=== PATIENT | female | born 1970 | race Caucasian/White ===

== ENCOUNTER 2023-01-31 07:14 | Emergency (ER) | payer OTHER ==
[~2023-01-31] VITALS: Ht 162.6 cm; Wt 54.4 kg
[2023-01-31] MEDS ORDERED: LACTATED RINGERS 1000ML 1,000 ML IV ONE (07:30)
[2023-01-31] MEDS ORDERED: MAG/ALUM/SIMETH 30 ML UDCUP PO ONE (07:30)
[2023-01-31] MEDS ORDERED: LIDOCAINE HCL 2% VISCOUS 15 ML UDCUP PO ONE (07:30)
[2023-01-31] MEDS ORDERED: ONDANSETRON 4MG INJ IVP ONE (07:30)
[2023-01-31 07:52] LABS: BASOPHILS # (AUTO) 0.04 K/uL (0.00-0.20); BASOPHILS % (AUTO) 0.4 % (0.0-5.0); EOSINOPHILS # (AUTO) 0.32 K/uL (0.00-0.70); HEMATOCRIT 45.1 % (36-48); IMMATURE GRANULOCYTE ABSOLUTE 0.06 K/uL (0-1); LYMPHOCYTES # (AUTO) 1.8 K/uL (1.0-4.8); LYMPHOCYTES % (AUTO) 16.7 % (21.0-51.0); MEAN CORPUSCULAR HEMOGLOBIN 30.6 pg (27.0-33.0); MEAN CORPUSCULAR HGB CONC 31.9 g/dL (32.0-36.0); MEAN CORPUSCULAR VOLUME 95.8 fL (79-99); MONOCYTES # (AUTO) 0.6 K/uL (0.1-1.0); MONOCYTES % (AUTO) 5.4 % (3.0-13.0); NEUTROPHILS # (AUTO) 7.9 K/uL (1.8-7.7); NEUTROPHILS % (AUTO) 73.9 % (40.0-77.0); PLATELET COUNT (AUTO) 331 K/uL (130-400); RED BLOOD CELL COUNT(AUTO) 4.71 MIL/uL (4.00-5.50); RED CELL DISTRIBUTION WIDTH 12.4 % (11.0-15.5); WHITE BLOOD COUNT (AUTO) 10.7 K/uL (4.8-10.8)
[2023-01-31 08:03] VITALS: BP 106/66; PULSE 89; RESP 17; O2SAT 100
[2023-01-31 08:10] LABS: ALBUMIN 4.1 g/dL (3.5-5.0); BILIRUBIN,TOTAL 0.5 mg/dL (0.2-1.0); POTASSIUM 3.9 mmol/L (3.5-5.1); TOTAL PROTEIN, SERUM 8.6 g/dL (6.0-8.3)
[2023-01-31 08:25] LABS: APPEARANCE,URINE CLEAR (CLEAR); BILIRUBIN,URINE NEGATIVE (NEGATIVE); COLOR,URINE YELLOW (YELLOW); GLUCOSE, URINE (UA) NEGATIVE (NEGATIVE); KETONES,URINE NEGATIVE (NEGATIVE); LEUKOCYTE ESTERASE ,URINE 25 Leu/uL (NEGATIVE); NITRATE,URINE NEGATIVE (NEGATIVE); OCCULT BLOOD,URINE NEGATIVE (NEGATIVE); PH,URINE 5.5 (5.0-8.0); PROTEIN,URINE 30 mg/dL (NEGATIVE); UROBILINOGEN,URINE 0.2 mg/dL (0.2-1.0)
[2023-01-31 08:28] LABS: ADD UA MICROSCOPIC YES
[2023-01-31 08:37] LABS: BACTERIA,URINE FEW /HPF (None Seen); MUCUS,URINE MANY LPF (None Seen); RBC,URINE 0-1 /HPF (0-1); SQUAMOUS EPITHELIAL CELL,UR RARE /HPF (0-2); WBC,URINE 0-1 /HPF (0-1)
[2023-01-31] MEDS ORDERED: PANT40TA55 PO (10:02)
== END 2023-01-31 10:20 | disposition home or self-care (01) ==
LOC: EDH 07:14
DX: N39.0 Urinary tract infection, site not specified (principal); A08.4 Viral intestinal infection, unspecified; R56.9 Unspecified convulsions; E03.9 Hypothyroidism, unspecified
CPT/HCPCS: 99284; 96374; 96361; 82550; 84484; 80053; 83690; 85025; 81001; 36415; 93005; J7120; J2405

== ENCOUNTER 2025-01-27 11:34 | Inpatient (IN) | payer SELFPAY ==
[~2025-01-27] VITALS: Ht 160 cm; Wt 69.9 kg
[~2025-01-27 11:34] MED LIST: PANT40TA55 PO
--- NOTE | 2025-01-27 11:49 | ERN ---
General Chief Complaint: Insect Bite Stated Complaint: FEVER Time Seen by MD: 11:35 Source: patient History of Present Illness Initial Comments PATIENT IS A 54-YEAR-OLD FEMALE COMING IN COMPLAINING OF THE RIGHT UPPER EXTREMITY INSECT BITE. SHE BELIEVES THAT INSECT BITE IT IS CAUSING HER TO HAVE NAUSEOUSNESS AND DIARRHEA. PER PATIENT THESE SYMPTOMS BEGAN TWO DAYS AGO IN HIS BEEN PROGRESSIVELY GETTING WORSE. Allergies: Coded Allergies: No Known Drug Allergies (Unverified Allergy, Unknown, 01/31/23) Home Meds Active Scripts Pantoprazole Sodium (Protonix) 40 Mg Ectab, 40 MG PO DAILY for 30 Days, #30 TAB.EC Prov:AKUA HUTTON MD 01/31/23 Past Medical History Past Medical History: No Pertinent History Medical History Other: THYROID Past Surgical History: Other Surgical History Other: TUBAL LIGATION ROS Dictation CONSTITUTIONAL: CHILLS, FEVER, NO WEAKNESS, NO DIAPHORESIS, NO MALAISE. HEAD/FACE: NO SIGNS OF TRAUMA. EENT: NO EYE PAIN, NO BLURRED VISION, NO TEARING, NO DOUBLE VISION, NO EAR PAIN, NO EAR DISCHARGE, NO NOSE PAIN, NO NASAL CONGESTION, NO THROAT PAIN, NO THROAT SWELLING, NO MOUTH PAIN. RESPIRATORY: NO COUGH, NO ORTHOPNEA, NO SOB, NO STRIDOR, NO WHEEZING. CARDIOVASCULAR: NO CHEST PAIN, NO EDEMA, NO PALPITATIONS, NO SYNCOPE. GASTROINTESTINAL/ABDOMINAL: NO ABDOMINAL PAIN, NO CONSTIPATION, NO DIARRHEA, NO NAUSEA, NO VOMITING. GENITOURINARY: NO ABNORMAL DISCHARGE, NO DYSURIA, NO FREQUENT URINATION, NO HEMATURIA. NO COMPLAINTS OF PAIN IN THE GENITALS. MUSCULOSKELETAL: NO BACK PAIN, NO GOUT, NO JOINT PAIN, NO JOINT SWELLING, NO MUSCLE PAIN, NO MUSCLE STIFFNESS, NO NECK PAIN. INTEGUMENTARY: NO CHANGE IN COLOR, NO CHANGE IN HAIR/NAILS, NO DRYNESS, NO LESION, NO LUMPS, RASH. NEUROLOGICAL/PSYCH: NO ANXIETY, NOT DEPRESSED, NO EMOTIONAL PROBLEM, NO HEADACHE, NO NUMBNESS, NO PRE-EXISTING DEFICIT, NO HISTORY OF SEIZURES, NO TR EMORS, NO WEAKNESS. HEMATOLOGIC/LYMPHATIC: NOT ANEMIC, NO HISTORY OF BLOOD CLOTS, NO APPARENT BLEEDING, NO BRUISING, GLANDS NOT SWOLLEN. ALL SYSTEMS NEGATIVE, EXCEPT NOTED. Physical Exam Physical Exam Dictation VITAL SIGNS: REVIEWED. GENERAL APPEARANCE: ALERT, ORIENTED X3, NO ACUTE DISTRESS, OBESE. HEAD AND FACE: NON-TRAUMATIC. EYES: PERRL, PINK CONJUNCTIVAS, EYELID NO TRAUMA, ANTERIOR CHAMBER CLEAR. EARS: PINNAS INTACT AND NO SIGNS OF TRAUMA OR ERYTHEMA. EAR CANALS CLEAR AND NO DISCHARGE. TMS NO ERYTHEMA. NOSE: NO DISCHARGE, NO BLEEDING. OROPHARYNX: MOUTH NORMAL, TEETH NO CARIES, TONGUE PINK. PHARYNX CLEAR, NO ERYTHEMA. TONSILS NO EXUDATES, NO ABSCESSES NOTED. MUCOUS MEMBRANE MOIST. NECK: SUPPLE, NON-TENDER, NO THYROMEGALY, NO MASSES, NO JVD, NO BRUITS. BREAST: DEFERRED. CHEST: NO TENDERNESS, NO CREPITUS, NO PARADOXICAL MOVEMENT, NO RETRACTIONS. LUNGS: CLEAR, WELL-VENTILATED, SYMMETRIC, NO RALES, NO WHEEZING, NO RHONCHI, NO STRIDOR, GOOD BREATH SOUNDS BILATERALLY. HEART: REGULAR RATE, REGULAR RHYTHM, NO MURMUR, NO GALLOPS. VASCULAR: NO PERIPHERAL EDEMA. ABDOMEN: SOFT, POSITIVE BOWEL SOUNDS, NONDISTENDED, NO GUARDING, NONTENDER, NO REBOUND, NO MASSES NO HEPATOMEGALY, NO SPLENOMEGALY, NO FLORIAN'S SIGN, NO HERNIAS. RECTAL: DEFERRED. GENITAL: DEFERRED. NEUROLOGICAL: NORMAL SPEECH, GROSS MOTOR FUNCTION INTACT, GROSS SENSORY FUNCTION INTACT. MUSCULOSKELETAL: NECK NONTENDER, FULL RANGE OF MOTION, BACK NONTENDER, FULL RANGE OF MOTION. EXTREMITIES: NONTENDER, FULL RANGE OF MOTION. SKIN: COLOR PINK, DRY, NO TURGOR, NO RASH, NO LACERATIONS, NO ABRASIONS, NO CONTUSIONS. LYMPHATICS: DEFERRED. Results Laboratory and Microbiology Lab and Micro Result Laboratory Tests Test 01/27/25 11:46 01/27/25 11:48 01/27/25 11:50 Urine Color YELLOW (YELLOW) Urine Appearance CLEAR (CLEAR) Urine pH 5.5 (5.0-8.0) Urine Specific [place] 1.022 (1.001-1.031) Urine Protein 50 mg/dL (NEGATIVE) H Urine Glucose (UA) NEGATIVE mg/dL (NEGATIVE) Urine Ketones NEGATIVE mg/dL (NEGATIVE) Urine Occult Blood SMALL (NEGATIVE) H Urine Nitrate NEGATIVE (NEGATIVE) Urine Bilirubin NEGATIVE mg/dL (NEGATIVE) Urine Urobilinogen 0.2 mg/dL (0.2-1.0) Urine Leukocyte Esterase 25 Darrell/uL (NEGATIVE) H Urine RBC 2-5 /HPF (0-1) H Urine WBC 6-10 /HPF (0-1) H Urine Squamous Epithelial Cells RARE /HPF (0-2) Urine Bacteria FEW /HPF (None Seen) Urine Opiates Screen NEGATIVE (NEGATIVE) Urine Barbiturates Screen NEGATIVE (NEGATIVE) Urine Phencyclidine Screen NEGATIVE (NEGATIVE) Urine Amphetamines Screen NEGATIVE (NEGATIVE) Urine Benzodiazepines Screen NEGATIVE (NEGATIVE) Urine Cocaine Screen NEGATIVE (NEGATIVE) Urine Marijuana (THC) Screen NEGATIVE (NEGATIVE) White Blood Count 7.3 K/uL (4.8-10.8) Red Blood Count 4.99 MIL/uL (4.00-5.50) Hemoglobin 14.8 g/dL (12.0-16.0) Hematocrit 45.7 % (36-48) Mean Corpuscular Volume 91.6 fL (79-99) Mean Corpuscular Hemoglobin 29.7 pg (27.0-33.0) Mean Corpuscular Hemoglobin Concent 32.4 g/dL (32.0-36.0) Red Cell Distribution Width 12.9 % (11.0-15.5) Platelet Count 228 K/uL (130-400) Mean Platelet Volume 8.9 fL (7.5-10.5) Immature Granulocyte % (Auto) 0.5 % (0-1) Neutrophils (%) (Auto) 82.4 % (40.0-77.0) H Lymphocytes (%) (Auto) 10.4 % (21.0-51.0) L Monocytes (%) (Auto) 6.3 % (3.0-13.0) Eosinophils (%) (Auto) 0.0 % (0.0-8.0) Basophils (%) (Auto) 0.4 % (0.0-5.0) Neutrophils # (Auto) 6.0 K/uL (1.8-7.7) Lymphocytes # (Auto) 0.8 K/uL (1.0-4.8) L Monocytes # (Auto) 0.5 K/uL (0.1-1.0) Eosinophils # (Auto) 0.00 K/uL (0.00-0.70) Basophils # (Auto) 0.03 K/uL (0.00-0.20) Absolute Immature Granulocyte (auto 0.04 K/uL (0-1) Nucleated Red Blood Cells 0.0 % (0.0-0.19) Sodium Level 131 mmol/L (136-145) L Potassium Level 3.8 mmol/L (3.5-5.1) Chloride Level 92 mmol/L (101-111) L Carbon Dioxide Level 27 mmol/L (21-32) Blood Urea Nitrogen 9 mg/dL (7-18) Creatinine 1.2 mg/dL (0.5-1.0) H Glomerular Filtration Rate Calc 54 mL/min (>90) Random Glucose 183 mg/dL (70-105) H Lactic Acid Level 3.6 mmol/L (0.8-2.5) H Total Calcium 8.5 mg/dL (8.5-10.1) Total Creatine Kinase 47 U/L (21-232) # Troponin I High Sensitivity 6 ng/L (4-50) Influenza Type A Antigen Negative For Type A Influenza Type B Antigen Negative For Type B SARS-CoV-2, RNA, NAAT NEGATIVE SARS CoV-2 Group A Streptococcus Rapid positive (NEGATIVE) *A Labs Reviewed?: Yes MDM MDM: DIFFERENTIAL DIAGNOSIS: SEPSIS, UTI, LACTIC ACIDOSIS, STREP, UTI RATIONALE: TESTS CONSIDERED AND ORDERED SECONDARY TO SHARED DECISION MAKING INCLUDE: PREVIOUS OUTSIDE RECORDS REVIEWED: OLD ER VISITS. RISK OF COMPLICATION AND/OR MORBIDITY OR MORTALITY OF PATIENT MANAGEMENT: NONE MEDICATIONS-PER MEDICATION RECONCILIATION NEED FOR HOSPITALIZATION: PATIENT DOES MEET CRITERIA FOR HOSPITALIZATION. NEED FOR EMERGENCY MAJOR/MINOR SURGERY: NO THERE ARE NO SOCIAL CONCERNS WITH THIS PATIENT. PRESCRIPTION DRUG MANAGEMENT PRESCRIPTIONS WILL INCLUDE SYMPTOMATIC CARE PATIENT'S PRIOR EXTERNAL MEDICAL RECORDS FROM OTHER ER VISITS WERE REVIEWED BY ME INDICATED. PRIOR TESTING AND RESULTS FROM PREVIOUS VISITS WERE REVIEWED. PRIOR TESTS WERE TAKEN INTO ACCOUNT WITH MEDICAL DECISION MAKING AND RESOURCE UTILIZATION, INDEPENDENT HISTORIAN/HISTORIANS WERE USED TO OBTAIN COMPLETE MEDICAL HISTORY. I INDEPENDENTLY INTERPRETED THE TEST THAT WERE PERFORMED, RESULTS WERE REVIEWED BY ME AND CONSIDERED FINDINGS ON RADIOLOGY IF ORDERED. MEDICAL MANAGEMENT AND EXAMINATION INTERPRETATION DISCUSSIONS WERE HAD BY ME WITH OTHER QUALIFIED HEALTHCARE PROFESSIONALS INDICATED FOR THE PATIENT'S CARE. HE WILL BE ADMITTED UNDER THE CARE OF HOSPITALIST GROUP FOR ONGOING MANAGEMENT. ED Course Orders Procedure Category Date Status Time Cbc With Differential LAB 01/27/25 Complete 11:37 Blood Cult JESÚS 01/27/25 In Process 11:37 Urinalysis Profile LAB 01/27/25 Complete 11:37 Culture Urine JESÚS 01/27/25 In Process 11:37 Creatine Kinase, Total LAB 01/27/25 Complete 11:37 Troponin I High LAB 01/27/25 Complete Sensitivity 11:37 Lactic Acid LAB 01/27/25 Complete 11:37 Basic Metabolic Panel LAB 01/27/25 Complete 11:37 Drug Screen Urine LAB 01/27/25 Complete 11:37 Covid Rna Naat LAB 01/27/25 Complete 11:37 Influenza Type A & B, LAB 01/27/25 Complete Rapid 11:37 Rapid (Group A Strep) LAB 01/27/25 Complete 11:37 12 Lead Ekg Tracing- EKG 01/27/25 Logged Technical 11:49 0.9%Nacl 1000ml (Ns PHA 01/27/25 Complete 1000ml) 13:00 Acetaminophen 325 Tab PHA 01/27/25 Complete (Tylenol 325mg Tab 13:00 Ceftriaxone 1g Vial PHA 01/27/25 Complete (Rocephine 1g Inj) 13:00 Current Medications Medications (Trade) Dose Ordered Sig/Roland Route PRN Reason Start Time Stop Time Status Last Admin Dose Admin Acetaminophen (TYLenol 325MG TAB) 650 mg ONCE ONCE PO 01/27/25 13:00 01/27/25 13:01 DC 01/27/25 12:44 Ceftriaxone Sodium (ROCEphine 1G INJ) 1 gm ONCE ONCE IVPB 01/27/25 13:00 01/27/25 13:01 DC Sodium Chloride 1,000 ml @ 0 mls/hr ONCE ONCE IV 01/27/25 13:00 01/27/25 13:01 DC 01/27/25 12:44 Vital Signs Date Time Temp Pulse Resp B/P (MAP) Pulse Ox O2 Delivery O2 Flow Rate FiO2 01/27/25 11:36 100.2 124 20 108/71 97 Room Air 0 Critical Care Note Comments CRITICAL CARE PROCEDURE NOTE AUTHORIZED AND PERFORMED BY: ME TOTAL CRITICAL CARE TIME: APPROXIMATELY 36 MINUTES DUE TO A HIGH PROBABILITY OF CLINICALLY SIGNIFICANT, LIFE THREATENING DETERIORATION, THE PATIENT REQUIRED MY HIGHEST LEVEL OF PREPAREDNESS TO INTERVENE EMERGENTLY AND I PERSONALLY SPENT THIS CRITICAL CARE TIME DIRECTLY AND PERSONALLY MANAGING THE PATIENT. THIS CRITICAL CARE TIME INCLUDED OBTAINING A HISTORY; EXAMINING THE PATIENT; PULSE OXIMETRY; ORDERING AND REVIEW OF STUDIES; ARRANGING URGENT TREATMENT WITH DEVELOPMENT OF A MANAGEMENT PLAN; EVALUATION OF PATIENT'S RESPONSE TO TREATMENT; FREQUENT REASSESSMENT; AND, DISCUSSIONS WITH OTHER PROVIDERS. THIS CRITICAL CARE TIME WAS PERFORMED TO ASSESS AND MANAGE THE HIGH PROBABILITY OF IMMINENT, LIFE-THREATENING DETERIORATION THAT COULD RESULT IN MULTI-ORGAN FAILURE. IT WAS EXCLUSIVE OF SEPARATELY BILLABLE PROCEDURES AND TREATING OTHER PATIENTS AND TEACHING TIME. PLEASE SEE MDM SECTION AND THE REST OF THE NOTE FOR FURTHER INFORMATION ON PATIENT ASSESSMENT AND TREATMENT. DX & DISP Disposition: Inpatient Departure Impression: Primary Impression: UTI (urinary tract infection) Additional Impressions: Sepsis, Lactic acidosis, Strep pharyngitis Condition: Stable Referrals: MERCEDES STANLEY MD (PCP) AKUA HUTTON MD Jan 27, 2025 11:49
[2025-01-27 11:56] LABS: ADD UA MICROSCOPIC YES; APPEARANCE,URINE CLEAR (CLEAR); GLUCOSE, URINE (UA) NEGATIVE (NEGATIVE); LEUKOCYTE ESTERASE ,URINE 25 Leu/uL (NEGATIVE); NITRATE,URINE NEGATIVE (NEGATIVE); OCCULT BLOOD,URINE SMALL (NEGATIVE)
[2025-01-27 12:04] LABS: IMMATURE GRANULOCYTE ABSOLUTE 0.04 K/uL (0-1); NUCLEATED RED BLOOD CELLS 0.0 % (0.0-0.19); PLATELET COUNT (AUTO) 228 K/uL (130-400); RED BLOOD CELL COUNT(AUTO) 4.99 MIL/uL (4.00-5.50); RED CELL DISTRIBUTION WIDTH 12.9 % (11.0-15.5); WHITE BLOOD COUNT (AUTO) 7.3 K/uL (4.8-10.8)
[2025-01-27 12:06] LABS: AMPHET/METH SCREEN,URINE NEGATIVE (NEGATIVE); BARBITURATE SCREEN, URINE NEGATIVE (NEGATIVE); CANNABINOID SCREEN,URINE NEGATIVE (NEGATIVE); COCAINE SCREEN,URINE NEGATIVE (NEGATIVE)
[2025-01-27 12:07] LABS: CREATININE 1.2 mg/dL (0.5-1.0); GLOMERULAR FILTR. RATE CALC 54.0 mL/min (>90); GLUCOSE,RANDOM 183.0 mg/dL (70-105); SODIUM SERUM 131.0 mmol/L (136-145); UREA NITROGEN, BLOOD 9.0 mg/dL (7-18)
[2025-01-27 12:11] LABS: SQUAMOUS EPITHELIAL CELL,UR RARE /HPF (0-2)
[2025-01-27 12:12] LABS: CREATINE KINASE, TOTAL 47.0 U/L (21-232)
[2025-01-27 12:31] LABS: SARS-CoV-2, RNA, NAAT NEGATIVE SARS CoV-2 (NEGATIVE)
[2025-01-27 12:32] LABS: INFLUENZA TYPE A Negative For Type A (NEGATIVE); INFLUENZA TYPE B Negative For Type B (NEGATIVE)
[2025-01-27 12:38] LABS: RAPID GROUP A STREP positive (NEGATIVE)
[2025-01-27] MEDS: 0.9%NACL 1000ML 1,000 ML IV ONE (12:44)
[2025-01-27] MEDS ORDERED: MAGNESIUM 2GM PREMIX 50ML 50 ML IV PRN (14:00)
[2025-01-27] MEDS ORDERED: PoTASSium chl 10% ELIXIR 20MEQ 20 MEQ/15 ML UDCUP PO PRN (14:00)
[2025-01-27] MEDS ORDERED: guaiFENesin-DM 200/20MG 10ML PO PRN (14:00)
[2025-01-27] MEDS ORDERED: DEXTROSE 50%-WATER 50 ML DISP.SYRIN IV PRN (14:00)
[2025-01-27] MEDS ORDERED: GLUCAGON 1MG KIT 1 MG ML IM PRN (14:00)
[2025-01-27] MEDS ORDERED: MAG/ALUM/SIMETH 30 ML UDCUP PO PRN (14:00)
[2025-01-27] MEDS ORDERED: FAMOTIDINE 20MG VIAL IV PRN (14:00)
[2025-01-27] MEDS ORDERED: NITROGLYCERIN 0.4 MG SL TAB SL PRN (14:00)
--- NOTE | 2025-01-27 14:15 | HP ---
[facility] HISTORY [facility] PHYSICAL Date of Service: Jan 27, 2025 Time of Service: 14:07 PCP: Admitting: Dr. Lobato Allergies: No Allergy Information Available, No Known Drug Allergies HISTORY OF PRESENT ILLNESS: Patient is54 years old with a past medical history of hyperthyroidism, tubal ligation, who came to emergency department with a complaint of right upper extremity insect bite. Patient believes that the insect bite cost her nausea and diarrhea. As per patient everything started about3 to 4 days ago and has been getting worse. There is no redness or swelling to the insect bite. Most recent vital signs temperature 100.2 pulse 107 respiration 20 blood pressure 108/71 WBC 7.3 Hemoglobin 14.8 hematocrit 45.7 Platelets 228toxicology negative. Urinalysis positive for leukocytosis. Patient was placed on Rocephin2 g daily. [id number] potassium 3.8 CO2 27 BUN 9 creatinine 1.2 GFR lactic acid 3.6 CK 47 Patient will be admitted under hospitalist care for further evaluation/recommendation POA chest x-ray pending CT abdomen/pelvis pending REVIEW OF SYSTEMS CONSTITUTIONAL: Denies or night sweats. No unintentional weight loss reported. Complains of fevers and chills NEUROLOGICAL: Denies headache, amaurosis fugax, motor weakness, sensory deficit, vertigo/spinning sensation, gait abnormalities, or tremors. ENT: No hearing loss, otalgia, otorrhea, rhinitis, rhinorrhea, hoarseness, or sore throat. CARDIOVASCULAR: Denies any exertional angina, dyspnea on exertion, orthopnea, paroxysmal nocturnal dyspnea, palpitations, life-threatening arrhythmias, claudication. PULMONARY: Denies any shortness of breath, cough, phlegm/sputum, hemoptysis, pleuritic chest pain. SLEEP: Denies morning headaches, daytime somnolence or napping. Denies difficulty falling asleep, staying asleep, waking from sleep. Denies knowledge of snoring. GASTROINTESTINAL: Denies any type of dysphagia to either liquids or solids. Denies pyrosis, early satiety, abdominal pain, diarrhea, constipation, or changes in stool consistency or caliber. Denies coffee-ground emesis, hematemesis, hematochezia, or melanotic stools. Complains of nausea and vomiting GENITOURINARY: Denies frequency, urgency, nocturia, hematuria or incontinence (Storage/Irritative symptoms.) Low urinary stream, straining to void, urinary intermittency or hesitancy, splitting of the voiding stream, terminal dribbling. ENDOCRINOLOGIC: Denies polyuria, polydipsia, polyphagia or heat/cold intolerances. HEMATOLOGIC: Denies thrombophilia/previous clots, or coagulopathy/bleeding disorders. ONCOLOGIC: Denies personal history of malignancy. DERMATOLOGIC: Denies rashes or pruritus. PSYCHIATRIC: Denies any suicidal or homicidal ideation. Denies hallucinations. PAST MEDICAL HISTORY: [ Hypothyroidism] PAST SURGICAL HISTORY: [Tubal ligation ] PAST SOCIAL HISTORY: [ Denies any ] FAMILY HISTORY: [ Patient is independent ] Coded Allergies: No Known Drug Allergies (Unverified Allergy, Unknown, 01/31/23) PHYSICAL EXAM GENERAL APPEARANCE: The patient is awake, alert, and oriented, in no acute cardiopulmonary distress. NEUROLOGICAL: Cranial nerves II-XII grossly intact. Motor is 5/5 in bilateral upper and lower extremities proximal to distal. No sensory deficits. HEENT: Face is symmetric. Pupils are equal and reactive. Extraocular movements are intact. NECK: Supple. No JVD. No thyromegaly. No submental, submandibular, pre- /postauricular, occipital or supraclavicular lymphadenopathy. CHEST: Normal chest expansion. No Telemetry. LUNGS: Absence of any rales, rhonchi or any wheezing. CARDIOVASCULAR: Regular. S1 and S2 normal. No appreciable rubs, murmurs or gallops. ABDOMEN: Soft, nontender, and nondistended. There is no rebound, voluntary guarding, or rigidity. : Deferred. No Pratt. EXTREMITIES: Non-edematous and not cyanotic. No clubbing. Good capillary refill. SKIN: No skin breakdown. Vital Sign (Last 24 Hours) 01/27/25 13:11 Temp 99.3 Pulse 107 Resp 20 B/P (MAP) 114/77 Pulse Ox 98 O2 Delivery Room Air* O2 Flow Rate 0 FiO2 21 LABS: Laboratory: Test 01/27/25 11:50 01/27/25 11:48 01/27/25 11:46 Range/Units Influenza Type A Antigen Negative For Type A NEGATIVE Influenza Type B Antigen Negative For Type B NEGATIVE SARS-CoV-2, RNA, NAAT NEGATIVE SARS CoV-2 NEGATIVE Group A Streptococcus Rapid positive *A NEGATIVE White Blood Count 7.3 4.8-10.8 K/uL Red Blood Count 4.99 4.00-5.50 MIL/uL Hemoglobin 14.8 12.0-16.0 g/dL Hematocrit 45.7 36-48 % Mean Corpuscular Volume 91.6 79-99 fL Mean Corpuscular Hemoglobin 29.7 27.0-33.0 pg Mean Corpuscular Hemoglobin Concent 32.4 32.0-36.0 g/dL Red Cell Distribution Width 12.9 11.0-15.5 % Platelet Count 228 130-400 K/uL Mean Platelet Volume 8.9 7.5-10.5 fL Immature Granulocyte % (Auto) 0.5 0-1 % Neutrophils (%) (Auto) 82.4 H 40.0-77.0 % Lymphocytes (%) (Auto) 10.4 L 21.0-51.0 % Monocytes (%) (Auto) 6.3 3.0-13.0 % Eosinophils (%) (Auto) 0.0 0.0-8.0 % Basophils (%) (Auto) 0.4 0.0-5.0 % Neutrophils # (Auto) 6.0 1.8-7.7 K/uL Lymphocytes # (Auto) 0.8 L 1.0-4.8 K/uL Monocytes # (Auto) 0.5 0.1-1.0 K/uL Eosinophils # (Auto) 0.00 0.00-0.70 K/uL Basophils # (Auto) 0.03 0.00-0.20 K/uL Absolute Immature Granulocyte (auto 0.04 0-1 K/uL Nucleated Red Blood Cells 0.0 0.0-0.19 % Sodium Level 131 L 136-145 mmol/L Potassium Level 3.8 3.5-5.1 mmol/L Chloride Level 92 L 101-111 mmol/L Carbon Dioxide Level 27 21-32 mmol/L Blood Urea Nitrogen 9 7-18 mg/dL Creatinine 1.2 H 0.5-1.0 mg/dL Glomerular Filtration Rate Calc 54 >90 mL/min Random Glucose 183 H 70-105 mg/dL Lactic Acid Level 3.6 H 0.8-2.5 mmol/L Total Calcium 8.5 8.5-10.1 mg/dL Total Creatine Kinase 47 # 21-232 U/L Troponin I High Sensitivity 6 4-50 ng/L Urine Color YELLOW YELLOW Urine Appearance CLEAR CLEAR Urine pH 5.5 5.0-8.0 Urine Specific [place] 1.022 1.001-1.031 Urine Protein 50 H NEGATIVE mg/dL Urine Glucose (UA) NEGATIVE NEGATIVE mg/dL Urine Ketones NEGATIVE NEGATIVE mg/dL Urine Occult Blood SMALL H NEGATIVE Urine Nitrate NEGATIVE NEGATIVE Urine Bilirubin NEGATIVE NEGATIVE mg/dL Urine Urobilinogen 0.2 0.2-1.0 mg/dL Urine Leukocyte Esterase 25 H NEGATIVE Darrell/uL Urine RBC 2-5 H 0-1 /HPF Urine WBC 6-10 H 0-1 /HPF Urine Squamous Epithelial Cells RARE 0-2 /HPF Urine Bacteria FEW None Seen /HPF Urine Opiates Screen NEGATIVE NEGATIVE Urine Barbiturates Screen NEGATIVE NEGATIVE Urine Phencyclidine Screen NEGATIVE NEGATIVE Urine Amphetamines Screen NEGATIVE NEGATIVE Urine Benzodiazepines Screen NEGATIVE NEGATIVE Urine Cocaine Screen NEGATIVE NEGATIVE Urine Marijuana (THC) Screen NEGATIVE NEGATIVE Current Medications Medications (Trade) Dose Ordered Sig/Roland Route PRN Reason Start Time Stop Time Status Last Admin Dose Admin Dextrose (D50w) 50 ml AD PRN IV HYPOGLYCEMIA PROTOCOL 01/27/25 14:00 02/26/25 13:59 Glucagon (Glucagon 1mg Kit) 1 mg AD PRN IM HYPOGLYCEMIA PROTOCOL 01/27/25 14:00 02/26/25 13:59 Insulin Human Regular (humuLIN R 100 UNIT/ML 3ML) INSULIN SLIDING SCAL... ACHS SQ 01/27/25 16:30 02/26/25 16:29 Magnesium Sulfate 50 ml @ 0 mls/hr PROTOCOL PRN IV other 01/27/25 14:00 02/26/25 13:59 Potassium Chloride 100 ml @ 100 mls/hr AD PRN IV POTASSIUM PROTOCOL 01/27/25 14:00 02/26/25 13:59 Potassium Chloride (K-Dur/Klor-Con 20meq) 20 meq AD PRN PO POTASSIUM PROTOCOL 01/27/25 14:00 02/26/25 13:59 Potassium Chloride (KCl 10% Elixir 20meq/15ml) 20 meq AD PRN PO POTASSIUM PROTOCOL 01/27/25 14:00 02/26/25 13:59 DIAGNOSTICS / RADIOLOGY: [ ] ASSESSMENT: [Acute sepsis POA Lactic acidosis POA Intractable abdominal pain POA Nausea and vomiting POA Acute complicated cystitis POA Electrolyte imbalance hyponatremia Na 131 Acute dehydration POA Acute kidney injury POA Uncontrolled diabetes mellitus type 2 with hypoglycemia POA Hypothyroidism POA History of tubal ligation POA ] PLAN: [ Patient admitted to hospitalist care to medical-surgical floor Rocephin2 g for UTI daily Normal saline at 100 mL/hour Urinalysis positive Strep positive Drugs toxicity negative Blood culture pending Urine culture pending A.m. labs Chest x-ray pending CT abdomen/pelvis pending Hyper and hypoglycemia protocol Hypomagnesemia protocol Hypokalemia protocol PRN medications Medication from home to be reconciled once entered by nurse to the computer PT consulted for disposition Case management consulted for disposition Consistent carbs diet ] ADVANCED CARE PLANNING 1. Which of the following were discussed? Hospice Care - Yes / No Therapeutic options - Yes / No Advance Directives - Yes / No Other discussions - 2. Discussed with who? Patient 3. Voluntary nature of this service was explained to the patient? Yes / No 4. Amount of time spent - ____ more than35 minutes ___ 5. Reviewed by Physician? (if this service was performed by NPP) Yes / No ATTESTATION BY PHYSICIAN I have seen and examined the patient. I reviewed the documentation, medical decision making, and treatment plan as noted by the mid-level provider above. I agree with the findings and plan of care. Yoshi Lobato IV, MD, [facility] [employer] Jan 27, 2025 14:15
--- NOTE | 2025-01-27 14:38 | EKG ---
[facility] Test Date: 2025-01-27 Test Time: 11:50:17 Pat Name: ALLAN MENDOZA Department: EDHIP Room: 309 Gender: F Continuous Improvement Manager: [id number] : 1970 Requested By: AKUA HUTTON Order Number: [id number] Reading MD: Mark Vargas Measurements Intervals [place] Rate: 113 P: 66 MI: 134 QRS: 88 QRSD: 117 T: 56 QT: 329 QTc: 451 Interpretive Statements Sinus tachycardia Right bundle branch block ST elev, probable normal early repol pattern Compared to ECG 01/31/2023 07:43:56 Right bundle-branch block now present ST (T wave) deviation now present Sinus rhythm no longer present Electronically Signed On 01-27-2025 16:33:33 FACILITY ASSISTANT by Mark Vargas Please click the below link to view image of tracing.
[2025-01-27] MEDS: 0.9%NACL 1000ML 1,000 ML IV SCH (14:47)
--- NOTE | 2025-01-27 15:07 | HMCIMG ---
EXAM: COMPUTED TOMOGRAPHY OF THE ABDOMEN AND PELVIS WITHOUT CONTRAST Technique: Helical computed tomography of the abdomen and pelvis with multiplanar reformations. CTDIvol: 9.7 mGy; DLP: 521.10 mGy???cm. Contrast: No intravenous contrast administered. Clinical Information: Nausea, vomiting, and abdominal pain. Findings: Lung bases: No pleural effusion, lobar collapse, or consolidation in the visualized lung bases; a few small calcified left perihilar lymph nodes. Liver: Normal size, morphology, and attenuation with smooth margins; no focal hepatic lesion; no intrahepatic or extrahepatic biliary ductal dilatation; aleyda hepatis unremarkable; portal vein, hepatic veins, and inferior vena cava are normal in caliber. Gallbladder and biliary tree: Normal wall thickness with smooth margins; homogeneous luminal density; no intraluminal calculus or mass; surrounding fat is unremarkable; cystic duct appears normal. Pancreas: Normal size, morphology, and attenuation; main pancreatic duct is not dilated; no peripancreatic fluid or fat stranding. Spleen: Normal size and attenuation; multiple tiny calcified granulomas. Adrenals: Normal morphology and attenuation bilaterally. Kidneys and ureters: Normal size, shape, position, and attenuation bilaterally; no renal or ureteral calculus, mass, hydronephrosis, or obstructive uropathy. Stomach and duodenum: Stomach is distended and otherwise unremarkable; gastroesophageal junction and pylorus are normal; duodenum normal in course and caliber. Small bowel: Jejunal and ileal loops show normal distribution and caliber without wall thickening or obstruction. Colon and appendix: Rectum and colon are distended with fecal material; no mural thickening or pericolonic inflammatory change; no computed tomography evidence of acute appendicitis. Peritoneum and mesentery: No free intraperitoneal fluid or free air; mesenteric fat and omentum are unremarkable. Lymph nodes: No pathologically enlarged mesenteric, retroperitoneal, or pelvic lymph nodes. Retroperitoneum and vasculature: Aorta and inferior vena cava are normal in course and caliber. Pelvic organs: Urinary bladder demonstrates normal wall thickness and contour; uterus normal for age; bilateral tubal clips are present. Abdominal wall/soft tissues: Extra-abdominal and paraspinal soft tissues are unremarkable; no hernia identified. Osseous structures: No acute osseous abnormality. Impression: * No acute abdominopelvic abnormality identified on non-contrast computed tomography. * Calcified granulomas in the spleen and small calcified left perihilar lymph nodes, compatible with prior granulomatous disease. * Bilateral tubal clips. /[place]
--- NOTE | 2025-01-27 15:16 | NUR ---
REPORT GIVEN TO LEIDA NATION, FELICIA SENT WITH PATIENT
[2025-01-27 15:28] VITALS: BP 107/68; PULSE 88; RESP 18; TEMP 98
--- NOTE | 2025-01-27 15:28 | NUR ---
ARRIVAL TO UNIT PT IN ROOM 309. A&OX4. NON LABORED BREATHING. ANSWERED QUESTIONS AT THIS TIME.
[2025-01-27 20:00] VITALS: BP 126/65; PULSE 113; RESP 18; TEMP 101.2
[2025-01-27] MEDS: FAMOTIDINE 20MG VIAL IV SCH (20:18)
--- NOTE | 2025-01-27 21:29 | NUR ---
PATIENT PROGRESS NOTE TEMPERATURE OF 101.2F RECORDED AT 1999. PATIENT REPORTED CHILLS. TYLENOL (650MG) GIVEN FOR RAISED TEMPERATURE. Addendum: 01/27/25 at 2133 by JUANIS BARTON RN RN Amended: Links added.
--- NOTE | 2025-01-27 22:30 | NUR ---
PATIENT PROGRESS NOTE TEMPERATURE REASSESSED AT 2220. TEMPERATURE REMAINED THE SAME AT 101.2F. PATIENT ENCOURAGED TO DRINK WATER AND PROVIDED WITH ICE PACKS UNDER NECK. PATIENT STILL REPORTS HAVING CHILLS.
--- NOTE | 2025-01-27 22:33 | HMCIMG ---
EXAM: CHEST RADIOGRAPH, 1 VIEW Technique: Single frontal view of the chest. Clinical Information: Congestion. Findings: Lungs and large airways: Emphysematous changes with hyperinflation; flattening of the left hemidiaphragm; no focal airspace consolidation. Pleura: No pleural effusion or pneumothorax. Heart and mediastinum: Cardiomediastinal silhouette within normal size limits. Bones/joints: No acute osseous abnormality identified. Impression: * Emphysematous changes with hyperinflation and flattening of the left hemidiaphragm. * No acute cardiopulmonary process. /[place]
--- NOTE | 2025-01-27 22:34 | HMCIMG ---
EXAM: CT BRAIN WITHOUT CONTRAST Technique: Non-contrast helical computed tomography of the brain with axial images; coronal and sagittal reformations using iterative reconstruction and automatic exposure control with patient-size???based kilovoltage/milliampere selection. CTDIvol: 57.50 mGy; DLP: 1010.60 mGy???cm. Contrast: No intravenous contrast administered. Clinical Information: Headache. Findings: Brain: Huff???white matter differentiation is preserved; no focal parenchymal abnormality is identified. Ventricles and extra-axial spaces: Ventricular size and configuration are within normal limits; no extra-axial fluid collection. Midline structures: No midline shift. Cerebellum and brainstem: Unremarkable. Orbits: Visualized intraorbital contents are unremarkable. Paranasal sinuses and mastoid air cells: Clear. Skull and skull base: Calvarium and skull base demonstrate normal osseous attenuation without acute fracture. Impression: * No acute intracranial abnormality???no acute hemorrhage, mass effect, or territorial infarction. /[place]
[2025-01-27 22:48] VITALS: O2SAT 99
[2025-01-28] VITALS (7 sets, daily range): BP systolic 101–129; BP diastolic 55–80; PULSE 63–114; RESP 17–20; TEMP 98.4–102.5; O2SAT 94
[2025-01-28 05:34] LABS: IMMATURE GRANULOCYTE ABSOLUTE 0.04 K/uL (0-1); NUCLEATED RED BLOOD CELLS 0.0 % (0.0-0.19); PLATELET COUNT (AUTO) 177 K/uL (130-400); RED BLOOD CELL COUNT(AUTO) 4.23 MIL/uL (4.00-5.50); RED CELL DISTRIBUTION WIDTH 13.1 % (11.0-15.5); WHITE BLOOD COUNT (AUTO) 5.8 K/uL (4.8-10.8)
[2025-01-28 05:41] LABS: INR 1.02 (0.85-1.15)
[2025-01-28 05:57] LABS: ASPARTATE AMINOTRANSFERASE 47 U/L (10-37); CREATINE KINASE, TOTAL 91 U/L (21-232); CREATININE 0.9 mg/dL (0.5-1.0); GLOMERULAR FILTR. RATE CALC 76 mL/min (>90); GLUCOSE,RANDOM 111 mg/dL (70-105); SODIUM SERUM 134 mmol/L (136-145); TOTAL PROTEIN, SERUM 6.7 g/dL (6.0-8.3); UREA NITROGEN, BLOOD 7 mg/dL (7-18)
--- NOTE | 2025-01-28 12:06 | NUR ---
DCP:HOME Pt currently lives at home with her and daughter. Pt denies having any DME, home health, or provider services. PCP is Dr. Eddy Grande and uses [facility] for any RX needs. At DC pt will want to go home and family can assist with transportation. Addendum: 01/28/25 at 1208 by PHOEBE ARELLANO SS Amended: Links added.
--- NOTE | 2025-01-28 15:56 | PN ---
[facility] PROGRESS NOTE Date of Service: Jan 28, 2025 Time of Service: 15:40 SUBJECTIVE: Patient is54 years old with a past medical history of hypothyroidism, tubal ligation, who came to emergency department with a complaint of right upper extremity insect bite. Patient believes that the insect bite cost her nausea and diarrhea. As per patient everything started about3 to 4 days ago and has been getting worse. There is no redness or swelling to the insect bite. Most recent vital signs temperature 100.2 pulse 107 respiration 20 blood pressure 108/71 WBC 7.3 Hemoglobin 14.8 hematocrit 45.7 Platelets 228toxicology negative. Urinalysis positive for leukocytosis. Patient was placed on Rocephin2 g daily. [id number] potassium 3.8 CO2 27 BUN 9 creatinine 1.2 GFR lactic acid 3.6 CK 47 Patient will be admitted under hospitalist care for further evaluation/recommendation POA chest x-ray pending CT abdomen/pelvis pending 01/28/2025: Patient has complained of constitutional symptoms soon after she got some insect bite. Ordered Lyme serologies considering it as a tick bite. She is currently febrile. Urinalysis is positive for infection and urine culture revealed greater than 3 colony types present [id number] colony-forming units, skin darlin contamination. Blood culture no growth. On examining her mouth and teeth suspected the patient has IV drug abuser. And ordered echocardiogram ultrasound for suspected endocarditis. Ordered maxillofacial CT scan for possible oral ulcers. Infectious disease consult is placed since it is the fever of unknown origin. REVIEW OF SYSTEMS CONSTITUTIONAL: Denies or night sweats. No unintentional weight loss reported. Complains of fevers and chills NEUROLOGICAL: Denies headache, amaurosis fugax, motor weakness, sensory deficit, vertigo/spinning sensation, gait abnormalities, or tremors. ENT: No hearing loss, otalgia, otorrhea, rhinitis, rhinorrhea, hoarseness, or sore throat. CARDIOVASCULAR: Denies any exertional angina, dyspnea on exertion, orthopnea, paroxysmal nocturnal dyspnea, palpitations, life-threatening arrhythmias, claudication. PULMONARY: Denies any shortness of breath, cough, phlegm/sputum, hemoptysis, pleuritic chest pain. SLEEP: Denies morning headaches, daytime somnolence or napping. Denies difficulty falling asleep, staying asleep, waking from sleep. Denies knowledge of snoring. GASTROINTESTINAL: Denies any type of dysphagia to either liquids or solids. Denies pyrosis, early satiety, abdominal pain, diarrhea, constipation, or changes in stool consistency or caliber. Denies coffee-ground emesis, hematemesi s, hematochezia, or melanotic stools. Complains of nausea and vomiting GENITOURINARY: Denies frequency, urgency, nocturia, hematuria or incontinence (Storage/Irritative symptoms.) Low urinary stream, straining to void, urinary intermittency or hesitancy, splitting of the voiding stream, terminal dribbling. ENDOCRINOLOGIC: Denies polyuria, polydipsia, polyphagia or heat/cold intolerances. HEMATOLOGIC: Denies thrombophilia/previous clots, or coagulopathy/bleeding disorders. ONCOLOGIC: Denies personal history of malignancy. DERMATOLOGIC: Denies rashes or pruritus. PSYCHIATRIC: Denies any suicidal or homicidal ideation. Denies hallucinations. PHYSICAL EXAM GENERAL APPEARANCE: The patient is awake, alert, and oriented, in no acute cardiopulmonary distress. NEUROLOGICAL: Cranial nerves II-XII grossly intact. Motor is 5/5 in bilateral upper and lower extremities proximal to distal. No sensory deficits. HEENT: Face is symmetric. Pupils are equal and reactive. Extraocular movements are intact. NECK: Supple. No JVD. No thyromegaly. No submental, submandibular, pre- /postauricular, occipital or supraclavicular lymphadenopathy. CHEST: Normal chest expansion. No Telemetry. LUNGS: Absence of any rales, rhonchi or any wheezing. CARDIOVASCULAR: Regular. S1 and S2 normal. No appreciable rubs, murmurs or ga llops. ABDOMEN: Soft, nontender, and nondistended. There is no rebound, voluntary guarding, or rigidity. : Deferred. No Pratt. EXTREMITIES: Non-edematous and not cyanotic. No clubbing. Good capillary refill. SKIN: No skin breakdown. Vital Signs (last 8hr) Date Time Temp Pulse Resp B/P (MAP) Pulse Ox O2 Delivery O2 Flow Rate FiO2 01/28/25 11:57 100.6 63 17 113/64 96 Room Air 01/28/25 08:00 100.9 114 17 129/80 94 Room Air LABS: Laboratory: Test 01/28/25 10:50 01/28/25 05:14 01/27/25 11:50 01/27/25 11:46 Range/Units Whole Blood Glucose 102 70-110 MG/DL White Blood Count 5.8 4.8-10.8 K/uL Red Blood Count 4.23 4.00-5.50 MIL/uL Hemoglobin 12.5 12.0-16.0 g/dL Hematocrit 39.4 36-48 % Mean Corpuscular Volume 93.1 79-99 fL Mean Corpuscular Hemoglobin 29.6 27.0-33.0 pg Mean Corpuscular Hemoglobin Concent 31.7 L 32.0-36.0 g/dL Red Cell Distribution Width 13.1 11.0-15.5 % Platelet Count 177 130-400 K/uL Mean Platelet Volume 8.9 7.5-10.5 fL Immature Granulocyte % (Auto) 0.7 0-1 % Neutrophils (%) (Auto) 73.1 40.0-77.0 % Lymphocytes (%) (Auto) 21.0 21.0-51.0 % Monocytes (%) (Auto) 4.5 3.0-13.0 % Eosinophils (%) (Auto) 0.0 0.0-8.0 % Basophils (%) (Auto) 0.7 0.0-5.0 % Neutrophils # (Auto) 4.2 1.8-7.7 K/uL Lymphocytes # (Auto) 1.2 1.0-4.8 K/uL Monocytes # (Auto) 0.3 0.1-1.0 K/uL Eosinophils # (Auto) 0.00 0.00-0.70 K/uL Basophils # (Auto) 0.04 0.00-0.20 K/uL Absolute Immature Granulocyte (auto 0.04 0-1 K/uL Nucleated Red Blood Cells 0.0 0.0-0.19 % Prothrombin Time 10.8 9.6-11.6 SEC Prothromb Time International Ratio 1.02 0.85-1.15 Sodium Level 134 L 136-145 mmol/L Potassium Level 3.8 3.5-5.1 mmol/L Chloride Level 100 L 101-111 mmol/L Carbon Dioxide Level 29 21-32 mmol/L Blood Urea Nitrogen 7 7-18 mg/dL Creatinine 0.9 0.5-1.0 mg/dL Glomerular Filtration Rate Calc 76 >90 mL/min Random Glucose 111 H 70-105 mg/dL Hemoglobin A1c 6.0 4.0-6.0 % Estimated Average Glucose (eAG) 126 70-126 mg/dL Lactic Acid Level 1.3 0.8-2.5 mmol/L Total Calcium 7.5 L 8.5-10.1 mg/dL Magnesium Level 2.00 1.80-2.40 mg/dL Total Bilirubin 0.3 0.2-1.0 mg/dL Direct Bilirubin 0.1 0.0-0.3 mg/dL Aspartate Amino Transf (AST/SGOT) 47 H 10-37 U/L Alanine Aminotransferase (ALT/SGPT) 28 12-78 U/L Alkaline Phosphatase 126 50-136 U/L Ammonia < 10 L 11-32 umol/L Total Creatine Kinase 91 # 21-232 U/L Troponin I High Sensitivity 8.3 4-50 ng/L B-Type Natriuretic Peptide 108 H 0-100 pg/mL Total Protein 6.7 6.0-8.3 g/dL Albumin 2.6 L 3.5-5.0 g/dL Amylase Level 48 25-115 U/L Lipase 61 16-77 U/L Procalcitonin 0.81 H 0.05-0.5 ng/mL Thyroid Stimulating Hormone (TSH) 0.81 0.36-3.74 uIU/mL Free Thyroxine (T4) Direct 1.21 0.76-1.46 ng/dL Free Triiodothyronine (T3) pg/mL 2.10 L 2.18-3.98 pg/mL Influenza Type A Antigen Negative For Type A NEGATIVE Influenza Type B Antigen Negative For Type B NEGATIVE SARS-CoV-2, RNA, NAAT NEGATIVE SARS CoV-2 NEGATIVE Group A Streptococcus Rapid positive *A NEGATIVE Urine Color YELLOW YELLOW Urine Appearance CLEAR CLEAR Urine pH 5.5 5.0-8.0 Urine Specific Lydia 1.022 1.001-1.031 Urine Protein 50 H NEGATIVE mg/dL Urine Glucose (UA) NEGATIVE NEGATIVE mg/dL Urine Ketones NEGATIVE NEGATIVE mg/dL Urine Occult Blood SMALL H NEGATIVE Urine Nitrate NEGATIVE NEGATIVE Urine Bilirubin NEGATIVE NEGATIVE mg/dL Urine Urobilinogen 0.2 0.2-1.0 mg/dL Urine Leukocyte Esterase 25 H NEGATIVE Darrell/uL Urine RBC 2-5 H 0-1 /HPF Urine WBC 6-10 H 0-1 /HPF Urine Squamous Epithelial Cells RARE 0-2 /HPF Urine Bacteria FEW None Seen /HPF Urine Opiates Screen NEGATIVE NEGATIVE Urine Barbiturates Screen NEGATIVE NEGATIVE Urine Phencyclidine Screen NEGATIVE NEGATIVE Urine Amphetamines Screen NEGATIVE NEGATIVE Urine Benzodiazepines Screen NEGATIVE NEGATIVE Urine Cocaine Screen NEGATIVE NEGATIVE Urine Marijuana (THC) Screen NEGATIVE NEGATIVE Current Medications Medications (Trade) Dose Ordered Sig/Roland Route PRN Reason Start Time Stop Time Status Last Admin Dose Admin Acetaminophen (TYLenol 325MG TAB) 650 mg Q4H PRN PO MILD PAIN (1-3) 01/27/25 14:00 02/26/25 13:59 Acetaminophen (TYLenol 325MG TAB) 650 mg Q6H PRN PO MILD PAIN (1-3) 01/27/25 14:00 01/27/25 14:11 DC Acetaminophen (TYLenol 325MG TAB) 650 mg Q6H PRN PO TEMPERATURE GREATER THAN 101.5 01/27/25 14:00 02/26/25 13:59 01/27/25 20:47 650 MG Acetaminophen/ Codeine Phosphate (TYLenol-coDEINE TAB) 1 tab Q6H PRN PO MODERATE PAIN (4-6) 01/27/25 14:00 02/26/25 13:59 01/27/25 23:43 1 TAB Al Hydroxide/Mg Hydroxide (MAALox PLUS 30ML) 30 ml Q6H PRN PO INDIGESTION 01/27/25 14:00 02/26/25 13:59 Ceftriaxone Sodium 2 gm/ Sodium Chloride 100 ml @ 200 mls/hr Q24H IV 01/27/25 14:00 01/27/25 14:14 DC Ceftriaxone Sodium (Rocephin 2gm Inj) 2 gm Q24H IVPB 01/28/25 14:00 02/07/25 13:59 Dextrose (D50w) 50 ml AD PRN IV HYPOGLYCEMIA PROTOCOL 01/27/25 14:00 02/26/25 13:59 Diphenhydramine HCl (BENAdryl CAP) 25 mg Q4H PRN PO MILD ITCHING/RASH 01/27/25 14:00 02/26/25 13:59 Doxycycline Hyclate (Doxycycline Hyclate) 100 mg BID PO 01/28/25 21:00 02/07/25 20:59 Famotidine (Pepcid 20mg Vial) 20 mg BID PRN IV NAUSEA/VOMITING 01/27/25 14:00 01/27/25 14:11 DC Famotidine (Pepcid 20mg Vial) 20 mg Q24H IV 01/27/25 21:00 02/26/25 20:59 01/27/25 20:18 20 MG Glucagon (Glucagon 1mg Kit) 1 mg AD PRN IM HYPOGLYCEMIA PROTOCOL 01/27/25 14:00 02/26/25 13:59 Guaifenesin/ Dextromethorphan (RobiTUSSin DM 200/20MG 10ML) 10 ml Q4H PRN PO COUGH 01/27/25 14:00 02/26/25 13:59 Heparin Sodium (Porcine) (HEParin 5,000 UNIT VIAL) 5,000 unit BID SQ 01/27/25 21:00 02/26/25 20:59 01/28/25 08:22 5,000 UNIT Hydralazine HCl (APRESOLine 20MG INJ) 10 mg Q6H PRN IV For:SBP above 160;DBP above 90 01/27/25 14:00 02/26/25 13:59 Ibuprofen (moTRIN) 800 mg Q8H PRN PO MODERATE PAIN (4-6) 01/27/25 14:00 01/27/25 14:11 DC Insulin Human Regular (humuLIN R 100 UNIT/ML 3ML) INSULIN SLIDING SCAL... ACHS SQ 01/27/25 16:30 02/26/25 16:29 Lactulose (Constulose 20gm/ 30ml Udcup) 20 gm BID PRN PO CONSTIPATION 01/27/25 14:00 02/26/25 13:59 Magnesium Sulfate 50 ml @ 0 mls/hr PROTOCOL PRN IV other 01/27/25 14:00 02/26/25 13:59 Morphine Sulfate (morPHINE 2MG SYG) 1 mg Q4H PRN IVP SEVERE PAIN (7-10) 01/27/25 14:00 02/03/25 13:59 Nitroglycerin (Nitrostat) 0.4 mg PROTOCOL PRN SL CHEST PAIN 01/27/25 14:00 02/26/25 13:59 Ondansetron HCl (zoFRAN 4MG INJ) 4 mg Q6H PRN IV NAUSEA/VOMITING 01/27/25 14:00 02/26/25 13:59 Potassium Chloride 100 ml @ 100 mls/hr AD PRN IV POTASSIUM PROTOCOL 01/27/25 14:00 02/26/25 13:59 Potassium Chloride (K-Dur/Klor-Con 20meq) 20 meq AD PRN PO POTASSIUM PROTOCOL 01/27/25 14:00 02/26/25 13:59 Potassium Chloride (KCl 10% Elixir 20meq/15ml) 20 meq AD PRN PO POTASSIUM PROTOCOL 01/27/25 14:00 02/26/25 13:59 Sodium Chloride 1,000 ml @ 100 mls/hr Q10H IV 01/27/25 14:00 02/26/25 13:59 01/28/25 01:45 100 MLS/HR Zolpidem Tartrate (AmbIEN) 5 mg HS PRN PO INSOMNIA 01/27/25 14:00 02/26/25 13:59 DIAGNOSTICS / RADIOLOGY: [place] [address] IMAGING REPORT Signed PATIENT: ALLAN MENDOZA MR#: [id number] : 1970 SEX: F AGE: 54 LOCATION: 3B ORDER [id number] STATUS: ADM IN REPORT#: [id number] SERVICE 1400 REASON: congestion ORDERING PHYSICIAN: IRASEMA RICH IT COMPLIANCE ANALYST PROCEDURE: CXR1VW - CHEST 1VW EXAM: CHEST RADIOGRAPH, 1 VIEW Technique: Single frontal view of the chest. Clinical Information: Congestion. Findings: Lungs and large airways: Emphysematous changes with hyperinflation; flattening of the left hemidiaphragm; no focal airspace consolidation. Pleura: No pleural effusion or pneumothorax. Heart and mediastinum: Cardiomediastinal silhouette within normal size limits. Bones/joints: No acute osseous abnormality identified. Impression: * Emphysematous changes with hyperinflation and flattening of the left hemidiaphragm. * No acute cardiopulmonary process. /[place] DICTATED BY: RODOLFO BONE MD DATE: 01/27/25 9263 ELECTRONICALLY SIGNED BY: RODOLFO BONE MD DATE: 01/27/25 2333 [facility] [address] [place], [place] [id number] IMAGING REPORT Signed PATIENT: ALLAN MENDOZA MR#: [id number] : 1970 SEX: F AGE: 54 LOCATION: EDHIP ORDER [id number] STATUS: ADM IN REPORT#: [id number] SERVICE 141 REASON: nausea vomiting abd pain ORDERING PHYSICIAN: IRASEMA RICH IT COMPLIANCE ANALYST PROCEDURE: ABD PEL WO - CT ABDOMEN/PELVIS W/O CONTRAST EXAM: COMPUTED TOMOGRAPHY OF THE ABDOMEN AND PELVIS WITHOUT CONTRAST Technique: Helical computed tomography of the abdomen and pelvis with multiplanar reformations. CTDIvol: 9.7 mGy; DLP: 521.10 mGy???cm. Contrast: No intravenous contrast administered. Clinical Information: Nausea, vomiting, and abdominal pain. Findings: Lung bases: No pleural effusion, lobar collapse, or consolidation in the visualized lung bases; a few small calcified left perihilar lymph nodes. Liver: Normal size, morphology, and attenuation with smooth margins; no focal hepatic lesion; no intrahepatic or extrahepatic biliary ductal dilatation; aleyda hepatis unremarkable; portal vein, hepatic veins, and inferior vena cava are normal in caliber. Gallbladder and biliary tree: Normal wall thickness with smooth margins; homogeneous luminal density; no intraluminal calculus or mass; surrounding fat is unremarkable; cystic duct appears normal. Pancreas: Normal size, morphology, and attenuation; main pancreatic duct is not dilated; no peripancreatic fluid or fat stranding. Spleen: Normal size and attenuation; multiple tiny calcified granulomas. Adrenals: Normal morphology and attenuation bilaterally. Kidneys and ureters: Normal size, shape, position, and attenuation bilaterally; no renal or ureteral calculus, mass, hydronephrosis, or obstructive uropathy. Stomach and duodenum: Stomach is distended and otherwise unremarkable; gastroesophageal junction and pylorus are normal; duodenum normal in course and caliber. Small bowel: Jejunal and ileal loops show normal distribution and caliber without wall thickening or obstruction. Colon and appendix: Rectum and colon are distended with fecal material; no mural thickening or pericolonic inflammatory change; no computed tomography evidence of acute appendicitis. Peritoneum and mesentery: No free intraperitoneal fluid or free air; mesenteric fat and omentum are unremarkable. Lymph nodes: No pathologically enlarged mesenteric, retroperitoneal, or pelvic lymph nodes. Retroperitoneum and vasculature: Aorta and inferior vena cava are normal in course and caliber. Pelvic organs: Urinary bladder demonstrates normal wall thickness and contour; uterus normal for age; bilateral tubal clips are present. Abdominal wall/soft tissues: Extra-abdominal and paraspinal soft tissues are unremarkable; no hernia identified. Osseous structures: No acute osseous abnormality. Impression: * No acute abdominopelvic abnormality identified on non-contrast computed tomography. * Calcified granulomas in the spleen and small calcified left perihilar lymph nodes, compatible with prior granulomatous disease. * Bilateral tubal clips. /[place] DICTATED BY: RODOLFO BONE MD DATE: 01/27/251605 ELECTRONICALLY SIGNED BY: RODOLFO BONE MD DATE: 01/27/251605 [place] [address] IMAGING REPORT Signed PATIENT: ALLAN MENDOZA MR#: [id number] : 1970 SEX: F AGE: 54 LOCATION: 3B ORDER 143 STATUS: ADM IN REPORT#: [id number] SERVICE 1430 REASON: HEADACHE ORDERING PHYSICIAN: IRASEMA RICH PROCEDURE: HEAD WO - CT HEAD/BRAIN W/O CONTRAST EXAM: CT BRAIN WITHOUT CONTRAST Technique: Non-contrast helical computed tomography of the brain with axial images; coronal and sagittal reformations using iterative reconstruction and automatic exposure control with patient-size???based kilovoltage/milliampere selection. CTDIvol: 57.50 mGy; DLP: 1010.60 mGy???cm. Contrast: No intravenous contrast administered. Clinical Information: Headache. Findings: Brain: Huff???white matter differentiation is preserved; no focal parenchymal abnormality is identified. Ventricles and extra-axial spaces: Ventricular size and configuration are within normal limits; no extra-axial fluid collection. Midline structures: No midline shift. Cerebellum and brainstem: Unremarkable. Orbits: Visualized intraorbital contents are unremarkable. Paranasal sinuses and mastoid air cells: Clear. Skull and skull base: Calvarium and skull base demonstrate normal osseous attenuation without acute fracture. Impression: * No acute intracranial abnormality???no acute hemorrhage, mass effect, or territorial infarction. /[place] DICTATED BY: RODOLFO BONE MD DATE: 01/27/252333 ELECTRONICALLY SIGNED BY: RODOLFO BONE MD DATE: 01/27/252333 ASSESSMENT: [Acute sepsis POA Lactic acidosis POA Intractable abdominal pain POA Nausea and vomiting POA Acute complicated cystitis POA Electrolyte imbalance hyponatremia Na 131 Acute dehydration POA Acute kidney injury POA Uncontrolled diabetes mellitus type 2 with hypoglycemia POA Hypothyroidism POA History of tubal ligation POA G positive PLAN: [Acute sepsis POA Lactic acidosis POA * [ Patient admitted to hospitalist care to medical-surgical floor * Rocephin2 g for UTI daily * Normal saline at 100 mL/hour * Urinalysis positive * Strep positive * Drugs toxicity negative * Blood culture no growth * Urine culture -[id number] colony-forming units * Chest x-ray - emphysema changes with hyperinflation and flattening of the left hemidiaphragm * CT abdomen/pelvis - granulomas in the spleen and small calcified left perih ilar lymph nodes-prior granulomatous disease Hyponatremia * 131-134 * Acute kidney injury POA * Resolved * * PT consulted for disposition Case management consulted for disposition Consistent carbs diet ] JOSR Noguera MD Jan 28, 2025 15:55
--- NOTE | 2025-01-28 16:27 | HMCIMG ---
EXAM: CT Maxillofacial Without IV contrast. CLINICAL HISTORY: Suspected oral infection. TECHNIQUE: Axial computed tomography images of the face obtained without intravenous contrast. Sagittal and coronal reformatted images were reviewed. CONTRAST: None. COMPARISON: None provided. FINDINGS: FACIAL BONES / ORBITS: No acute fracture or aggressive osseous lesion identified. Mild cortical rarefaction involving the mandibular dental alveolus in the left paramedian region with adjacent gingival thickening???suggestive of early inflammatory or infective changes; MRI correlation recommended for soft tissue and marrow evaluation. The remainder of the mandible is intact. Orbits are normal without retrobulbar haematoma or mass. PARANASAL SINUSES: Deviated nasal septum towards the left with hypertrophied right inferior turbinate and infected right sixto bullosa. Mucosal thickening noted in the bilateral maxillary and ethmoidal sinuses, consistent with sinusitis. Frontal and sphenoid sinuses are clear. SOFT TISSUES: Adjacent facial and gingival soft tissues show mild thickening without abscess or collection. No radiopaque foreign body.IMPRESSION: 1. Mild cortical rarefaction of left paramedian mandibular dental alveolus with adjacent gingival thickening, suggestive of early inflammatory or infective changes. MRI correlation recommended for soft tissue and marrow evaluation. 2. Bilateral maxillary and ethmoidal sinusitis. 3. Deviated nasal septum towards the left with hypertrophied right inferior turbinate and infected right sixto bullosa. 4. No acute fracture or aggressive osseous lesion identified. 5. Orbits are normal without retrobulbar haematoma or mass. 6. Frontal and sphenoid sinuses are clear. 7. No radiopaque foreign body identified in the soft tissues. /[place]
--- NOTE | 2025-01-28 18:03 | HMCSR ---
APPROVED REPORT EXAM: Two-dimensional and M-mode echocardiogram with Doppler and color Doppler. INDICATION ICD: Possible endocarditis 2D Dimensions RVDd3.1 cmLVEF(%)62.5 (>50%)LVED Vol(simp.)71.0 mL IVSd0.6 (0.7-1.1cm)FS(%)33 %LVES Vol(simp.)26.0 mL LVDd4.1 (3.8-5.6cm)LA (2D)3.2 (1.6-4.0cm)LVEF(%, simp.)64 % PWd0.6 (0.7-1.1cm)Ao Root(2D)2.7 (2.0-3.7cm)LA ESV INDEX (BP)21.13 mL/m2 LVDs2.7 (2.5-4.0cm)LVOT diam1.9 (1.8-2.4cm) IVC diam1.8 cm Deformation Strain Apical 4-20.0 % Apical 2-15.7 % Apical 3-21.2 % Global Strain-19.0 % Aortic Valve AoV Vmax1.5 m/Emily Peak GR8.6 mmHgLVOT Vmax1.4 m/s AoV VTI0.2 mAo Mean GR5.5 mmHgLVOT VTI0.21 m YUE (VMAX)2.83 cm2AVA (VTI) 2.5 cm2 Mitral Valve MV E Vmax87.2 cm/sDECEL Nals193 ms MV A Vmax71.4 cm/sP 1/2 T34 ms E/A ratio1.2MVA (PHT)6.4 cm2 TDI E/E' Medial7.9E/E' Lateral7.8 Medial E' Peak V11.10 cm/sLateral E' Peak V11.11 cm/s Pulmonary Valve PV Vmax1.3 m/sPV VTI0.24 mPV Mean GR3.8 mmHg PV Peak GR6.3 mmHg Tricuspid Valve TR Vmax2.3 m/sRVSP20.6 mmHg TR Peak GR23.4 mmHg Left Ventricle The left ventricle is normal size. There is normal LV segmental wall motion. There is normal left hilton tricular wall thickness. LVEF is 60-65%. The left ventricular diastolic function is normal. Right Ventricle The right ventricle is normal size. The right ventricular systolic function is normal. Atria The left atrium size is normal. The right atrium size is normal. Aortic Valve The aortic valve is normal in structure. No aortic regurgitation is present. No aortic valvular veget ation noted. There is no aortic valvular stenosis. Mitral Valve The mitral valve is normal in structure. Mitral regurgitation is trace. There are no mitral valve veg etation noted. There is no mitral valve stenosis. Tricuspid Valve The tricuspid valve is normal in structure. There is no tricuspid valve regurgitation noted. There is no tricuspid valve vegetation. Pulmonic Valve The pulmonary valve is normal in structure. There is no pulmonic valvular regurgitation. Great Vessels The aortic root is normal in size. The IVC is normal in size and collapses >50% with inspiration. Pericardium There is no pericardial effusion. Conclusion LVEF is 60-65%. There is normal LV segmental wall motion. The left ventricular diastolic function is normal. The aortic valve is normal in structure. The mitral valve is normal in structure. The tricuspid valve is normal in structure.
[2025-01-28] MEDS: DOXYCYCLINE HYCLATE 100 MG TABLET PO SCH (20:26)
[2025-01-29] VITALS (8 sets, daily range): BP systolic 102–135; BP diastolic 58–89; PULSE 71–114; RESP 15–18; TEMP 97.5–101
--- NOTE | 2025-01-29 06:59 | PN ---
INFECTIOUS DISEASE FOLLOWUP NOTE SUBJECTIVE: The patient is seen and examined at bedside. The patient continues some fever. No nausea or vomiting. No sore throat. No ____. No bleeding tendency. No cough. No shortness of breath. Denies dysuria or urinary frequency. No depression. No suicidal ideation. No palpitation. No orthopnea. PHYSICAL EXAMINATION: VITAL SIGNS: Temperature 97.2. EYES: No icterus. Pupils equal, round, and reactive. HENT: No oral thrush seen. Moist oral mucosa. NECK: Supple. No JVD or thyromegaly. LUNGS: Good air entry. No rales. No rhonchi. CARDIOVASCULAR: S1 and S2, regular. No murmur heard. ABDOMEN: Soft, nontender. Bowel sound is present. CENTRAL NERVOUS SYSTEM: Awake, alert, oriented x3. No focal deficits. SKIN: Patient has erythematous rashes. LYMPHATICS: No peripheral lymphadenopathy. BACK: No deformity. No pressure ulcer. HEMATOLOGIC: No bleeding or petechial lesions seen. MUSCULOSKELETAL: No joint swelling, erythema, or tenderness. ASSESSMENT: A 54-year-old female with ____ fever. * Possible ____ infection. * ____. * Hyponatremia. PLAN: * Continue ____ * Continue ceftriaxone. * Continue doxycycline. * Continue ____. * Continue antiemetics. * Monitor electrolytes. TID: [id number] RECEIPT: [id number]
[2025-01-29 08:11] LABS: NUCLEATED RED BLOOD CELLS 0.0 % (0.0-0.19); PLATELET COUNT (AUTO) 144.0 K/uL (130-400); RED BLOOD CELL COUNT(AUTO) 3.62 MIL/uL (4.00-5.50); RED CELL DISTRIBUTION WIDTH 13.0 % (11.0-15.5); WHITE BLOOD COUNT (AUTO) 7.9 K/uL (4.8-10.8)
[2025-01-29 08:18] LABS: HIV 1&2 ANTIBODY Non-Reactive (Negative)
[2025-01-29 08:19] LABS: ASPARTATE AMINOTRANSFERASE 42.0 U/L (10-37); CREATININE 0.9 mg/dL (0.5-1.0); GLOMERULAR FILTR. RATE CALC 76.0 mL/min (>90); GLUCOSE,RANDOM 97.0 mg/dL (70-105); SODIUM SERUM 133.0 mmol/L (136-145); TOTAL PROTEIN, SERUM 5.9 g/dL (6.0-8.3); UREA NITROGEN, BLOOD 8.0 mg/dL (7-18)
[2025-01-29] MEDS ORDERED: CHLORHEXIDINE GLUCONATE 15 ML MOUTHWASH MM PRN (12:00)
--- NOTE | 2025-01-29 13:35 | PN ---
[facility] PROGRESS NOTE Date of Service: Jan 29, 2025 Time of Service: 13:35 SUBJECTIVE: Patient is54 years old with a past medical history of hypothyroidism, tubal ligation, who came to emergency department with a complaint of right upper extremity insect bite. Patient believes that the insect bite cost her nausea and diarrhea. As per patient everything started about3 to 4 days ago and has been getting worse. There is no redness or swelling to the insect bite. Most recent vital signs temperature 100.2 pulse 107 respiration 20 blood pressure 108/71 WBC 7.3 Hemoglobin 14.8 hematocrit 45.7 Platelets 228toxicology negative. Urinalysis positive for leukocytosis. Patient was placed on Rocephin2 g daily. [id number] potassium 3.8 CO2 27 BUN 9 creatinine 1.2 GFR lactic acid 3.6 CK 47 Patient will be admitted under hospitalist care for further evaluation/recommendation POA chest x-ray pending CT abdomen/pelvis pending 01/28/2025: Patient has complained of constitutional symptoms soon after she got some insect bite. Ordered Lyme serologies considering it as a tick bite. She is currently febrile. Urinalysis is positive for infection and urine culture revealed greater than 3 colony types present [id number] colony-forming units, skin darlin contamination. Blood culture no growth. On examining her mouth and teeth suspected the patient has IV drug abuser. And ordered echocardiogram ultrasound for suspected endocarditis. Ordered maxillofacial CT scan for possible oral ulcers. Infectious disease consult is placed since it is the fever of unknown origin. 01/29/2025: Patient seen in the room 309. Complains of fever, [facility]. No other significant complaints. Maxillofacial CT scan revealed a gingivitis. Patient is on doxycycline 100 mg to cover suspected Lyme. Started on Flagyl to cover anaerobic organisms. Ordered typhus. Given chlorhexidine solution to rinse the mouth. Since the patient can not be discharged [id number] hours assess febrile thing, so pending discharge of the patient was. HIV negative, pending others. Abdominal ultrasound revealed no hepatosplenomegaly. REVIEW OF SYSTEMS CONSTITUTIONAL: Denies or night sweats. No unintentional weight loss reported. Complains of fevers and chills NEUROLOGICAL: Denies headache, amaurosis fugax, motor weakness, sensory deficit, vertigo/spinning sensation, gait abnormalities, or tremors. ENT: No hearing loss, otalgia, otorrhea, rhinitis, rhinorrhea, hoarseness, or sore throat. CARDIOVASCULAR: Denies any exertional angina, dyspnea on exertion, orthopnea, paroxysmal nocturnal dyspnea, palpitations, life-threatening arrhythmias, claudication. PULMONARY: Denies any shortness of breath, cough, phlegm/sputum, hemoptysis, pleuritic chest pain. SLEEP: Denies morning headaches, daytime somnolence or napping. Denies difficulty falling asleep, staying asleep, waking from sleep. Denies knowledge of snoring. GASTROINTESTINAL: Denies any type of dysphagia to either liquids or solids. Denies pyrosis, early satiety, abdominal pain, diarrhea, constipation, or changes in stool consistency or caliber. Denies coffee-ground emesis, hematemesis, hematochezia, or melanotic stools. Complains of nausea and vomiting GENITOURINARY: Denies frequency, urgency, nocturia, hematuria or incontinence (Storage/Irritative symptoms.) Low urinary stream, straining to void, urinary intermittency or hesitancy, splitting of the voiding stream, terminal dribbling. ENDOCRINOLOGIC: Denies polyuria, polydipsia, polyphagia or heat/cold intolerances. HEMATOLOGIC: Denies thrombophilia/previous clots, or coagulopathy/bleeding disorders. ONCOLOGIC: Denies personal history of malignancy. DERMATOLOGIC: Denies rashes or pruritus. PSYCHIATRIC: Denies any suicidal or homicidal ideation. Denies hallucinations. PHYSICAL EXAM GENERAL APPEARANCE: The patient is awake, alert, and oriented, in no acute cardiopulmonary distress. NEUROLOGICAL: Cranial nerves II-XII grossly intact. Motor is 5/5 in bilateral upper and lower extremities proximal to distal. No sensory deficits. HEENT: Face is symmetric. Pupils are equal and reactive. Extraocular movements are intact. NECK: Supple. No JVD. No thyromegaly. No submental, submandibular, pre- /postauricular, occipital or supraclavicular lymphadenopathy. CHEST: Normal chest expansion. No Telemetry. LUNGS: Absence of any rales, rhonchi or any wheezing. CARDIOVASCULAR: Regular. S1 and S2 normal. No appreciable rubs, murmurs or gallops. ABDOMEN: Soft, nontender, and nondistended. There is no rebound, voluntary guarding, or rigidity. : Deferred. No Pratt. EXTREMITIES: Non-edematous and not cyanotic. No clubbing. Good capillary refill. SKIN: No skin breakdown. Vital Signs (last 8hr) Date Time Temp Pulse Resp B/P (MAP) Pulse Ox O2 Delivery O2 Flow Rate FiO2 01/29/25 12:00 98.2 100 16 114/64 94 Room Air 01/29/25 10:17 Room Air* 0 21 01/29/25 08:00 98.1 98 15 118/63 94 Room Air LABS: Laboratory: Test 01/29/25 11:41 01/29/25 05:28 01/28/25 05:14 Range/Units Whole Blood Glucose 105 70-110 MG/DL White Blood Count 7.9 4.8-10.8 K/uL Red Blood Count 3.62 L 4.00-5.50 MIL/uL Hemoglobin 10.8 L 12.0-16.0 g/dL Hematocrit 32.6 L 36-48 % Mean Corpuscular Volume 90.1 79-99 fL Mean Corpuscular Hemoglobin 29.8 27.0-33.0 pg Mean Corpuscular Hemoglobin Concent 33.1 32.0-36.0 g/dL Red Cell Distribution Width 13.0 11.0-15.5 % Platelet Count 144 130-400 K/uL Mean Platelet Volume 9.4 7.5-10.5 fL Nucleated Red Blood Cells 0.0 0.0-0.19 % Sodium Level 133 L 136-145 mmol/L Potassium Level 3.3 L 3.5-5.1 mmol/L Chloride Level 97 L 101-111 mmol/L Carbon Dioxide Level 26 21-32 mmol/L Blood Urea Nitrogen 8 7-18 mg/dL Creatinine 0.9 0.5-1.0 mg/dL Glomerular Filtration Rate Calc 76 >90 mL/min Random Glucose 97 70-105 mg/dL Total Calcium 7.4 L 8.5-10.1 mg/dL Total Bilirubin 0.3 0.2-1.0 mg/dL Aspartate Amino Transf (AST/SGOT) 42 H 10-37 U/L Alanine Aminotransferase (ALT/SGPT) 26 12-78 U/L Alkaline Phosphatase 130 50-136 U/L C-Reactive Protein, Quantitative 113.10 H 0.5-3.0 mg/L Total Protein 5.9 L 6.0-8.3 g/dL Albumin 2.3 L 3.5-5.0 g/dL Rapid Plasma Reagin NONREACTIVE NONREACTIVE Brucella Total Antibody Agglutin NEGATIVE NEGATIVE HIV (1&2) Antibody Non-Reactive Negative HIV P24 Antigen, Qualitative Non-Reactive Negative Paratyphoid A Antibody NEGATIVE NEGATIVE Paratyphoid B Antibody NEGATIVE NEGATIVE Proteus OX-19 Antibody 1:40 NEGATIVE Typhoid H Antibody NEGATIVE NEGATIVE Typhoid O Antibody NEGATIVE NEGATIVE Immature Granulocyte % (Auto) 0.7 0-1 % Neutrophils (%) (Auto) 73.1 40.0-77.0 % Lymphocytes (%) (Auto) 21.0 21.0-51.0 % Monocytes (%) (Auto) 4.5 3.0-13.0 % Eosinophils (%) (Auto) 0.0 0.0-8.0 % Basophils (%) (Auto) 0.7 0.0-5.0 % Neutrophils # (Auto) 4.2 1.8-7.7 K/uL Lymphocytes # (Auto) 1.2 1.0-4.8 K/uL Monocytes # (Auto) 0.3 0.1-1.0 K/uL Eosinophils # (Auto) 0.00 0.00-0.70 K/uL Basophils # (Auto) 0.04 0.00-0.20 K/uL Absolute Immature Granulocyte (auto 0.04 0-1 K/uL Prothrombin Time 10.8 9.6-11.6 SEC Prothromb Time International Ratio 1.02 0.85-1.15 Hemoglobin A1c 6.0 4.0-6.0 % Estimated Average Glucose (eAG) 126 70-126 mg/dL Lactic Acid Level 1.3 0.8-2.5 mmol/L Magnesium Level 2.00 1.80-2.40 mg/dL Direct Bilirubin 0.1 0.0-0.3 mg/dL Ammonia < 10 L 11-32 umol/L Total Creatine Kinase 91 # 21-232 U/L Troponin I High Sensitivity 8.3 4-50 ng/L B-Type Natriuretic Peptide 108 H 0-100 pg/mL Amylase Level 48 25-115 U/L Lipase 61 16-77 U/L Procalcitonin 0.81 H 0.05-0.5 ng/mL Thyroid Stimulating Hormone (TSH) 0.81 0.36-3.74 uIU/mL Free Thyroxine (T4) Direct 1.21 0.76-1.46 ng/dL Free Triiodothyronine (T3) pg/mL 2.10 L 2.18-3.98 pg/mL Current Medications Medications (Trade) Dose Ordered Sig/Roland Route PRN Reason Start Time Stop Time Status Last Admin Dose Admin Acetaminophen (TYLenol 325MG TAB) 650 mg Q4H PRN PO MILD PAIN (1-3) 01/27/25 14:00 02/26/25 13:59 01/29/25 02:55 650 MG Acetaminophen (TYLenol 325MG TAB) 650 mg Q6H PRN PO MILD PAIN (1-3) 01/27/25 14:00 01/27/25 14:11 DC Acetaminophen (TYLenol 325MG TAB) 650 mg Q6H PRN PO TEMPERATURE GREATER THAN 101.5 01/27/25 14:00 02/26/25 13:59 01/27/25 20:47 650 MG Acetaminophen/ Codeine Phosphate (TYLenol-coDEINE TAB) 1 tab Q6H PRN PO MODERATE PAIN (4-6) 01/27/25 14:00 02/26/25 13:59 01/28/25 18:04 1 TAB Al Hydroxide/Mg Hydroxide (MAALox PLUS 30ML) 30 ml Q6H PRN PO INDIGESTION 01/27/25 14:00 02/26/25 13:59 Ceftriaxone Sodium 2 gm/ Sodium Chloride 100 ml @ 200 mls/hr Q24H IV 01/27/25 14:00 01/27/25 14:14 DC Ceftriaxone Sodium (Rocephin 2gm Inj) 2 gm Q24H IVPB 01/28/25 14:00 02/07/25 13:59 01/28/25 16:31 2 GM Chlorhexidine Gluconate (Peridex) 15 ml BID PRN MM MOUTH SORES 01/29/25 12:00 02/12/25 11:59 Dextrose (D50w) 50 ml AD PRN IV HYPOGLYCEMIA PROTOCOL 01/27/25 14:00 02/26/25 13:59 Diphenhydramine HCl (BENAdryl CAP) 25 mg Q4H PRN PO MILD ITCHING/RASH 01/27/25 14:00 02/26/25 13:59 Doxycycline Hyclate (Doxycycline Hyclate) 100 mg BID PO 01/28/25 21:00 02/07/25 20:59 01/29/25 08:40 100 MG Famotidine (Pepcid 20mg Vial) 20 mg BID PRN IV NAUSEA/VOMITING 01/27/25 14:00 01/27/25 14:11 DC Famotidine (Pepcid 20mg Vial) 20 mg Q24H IV 01/27/25 21:00 02/26/25 20:59 01/28/25 20:26 20 MG Glucagon (Glucagon 1mg Kit) 1 mg AD PRN IM HYPOGLYCEMIA PROTOCOL 01/27/25 14:00 02/26/25 13:59 Guaifenesin/ Dextromethorphan (RobiTUSSin DM 200/20MG 10ML) 10 ml Q4H PRN PO COUGH 01/27/25 14:00 02/26/25 13:59 Heparin Sodium (Porcine) (HEParin 5,000 UNIT VIAL) 5,000 unit BID SQ 01/27/25 21:00 02/26/25 20:59 01/29/25 08:40 5,000 UNIT Hydralazine HCl (APRESOLine 20MG INJ) 10 mg Q6H PRN IV For:SBP above 160;DBP above 90 01/27/25 14:00 02/26/25 13:59 Ibuprofen (moTRIN) 800 mg Q8H PRN PO MODERATE PAIN (4-6) 01/27/25 14:00 01/27/25 14:11 DC Insulin Human Regular (humuLIN R 100 UNIT/ML 3ML) INSULIN SLIDING SCAL... ACHS SQ 01/27/25 16:30 02/26/25 16:29 Lactulose (Constulose 20gm/ 30ml Udcup) 20 gm BID PRN PO CONSTIPATION 01/27/25 14:00 02/26/25 13:59 Magnesium Sulfate 50 ml @ 0 mls/hr PROTOCOL PRN IV other 01/27/25 14:00 02/26/25 13:59 Metronidazole (flaGYL) 250 mg DAILY PO 01/30/25 09:00 01/29/25 11:39 DC Morphine Sulfate (morPHINE 2MG SYG) 1 mg Q4H PRN IVP SEVERE PAIN (7-10) 01/27/25 14:00 02/03/25 13:59 Nitroglycerin (Nitrostat) 0.4 mg PROTOCOL PRN SL CHEST PAIN 01/27/25 14:00 02/26/25 13:59 Ondansetron HCl (zoFRAN 4MG INJ) 4 mg Q6H PRN IV NAUSEA/VOMITING 01/27/25 14:00 02/26/25 13:59 01/28/25 23:20 4 MG Potassium Chloride 100 ml @ 100 mls/hr AD PRN IV POTASSIUM PROTOCOL 01/27/25 14:00 02/26/25 13:59 Potassium Chloride (K-Dur/Klor-Con 20meq) 20 meq AD PRN PO POTASSIUM PROTOCOL 01/27/25 14:00 02/26/25 13:59 Potassium Chloride (KCl 10% Elixir 20meq/15ml) 20 meq AD PRN PO POTASSIUM PROTOCOL 01/27/25 14:00 02/26/25 13:59 Sodium Chloride 1,000 ml @ 100 mls/hr Q10H IV 01/27/25 14:00 02/26/25 13:59 01/29/25 01:16 100 MLS/HR Zolpidem Tartrate (AmbIEN) 5 mg HS PRN PO INSOMNIA 01/27/25 14:00 02/26/25 13:59 DIAGNOSTICS / RADIOLOGY: [place] [address] IMAGING REPORT Signed PATIENT: ALLAN MENDOZA MR#: [id number] : 1970 SEX: F AGE: 54 LOCATION: 3B ORDER 55 STATUS: ADM IN REPORT#: [id number] SERVICE 164 REASON: to check for hepatosplenomegaly ORDERING PHYSICIAN: JOSR GARCIA MD PROCEDURE: ABDOMEN - US ABDOMINAL COMPLETE EXAM: ABDOMINAL ULTRASOUND Technique: Real-time grayscale ultrasound of the abdomen with supplemental color Doppler when indicated. Contrast: No intravenous contrast administered. Clinical Information: Evaluate for hepatosplenomegaly. Findings: Liver: Measures 15.2 cm in craniocaudal length and is normal in size with increased echogenicity compatible with hepatic steatosis. Gallbladder and biliary tree: Gallbladder is normal with wall thickness 2 mm; common bile duct measures 5 mm. Pancreas: Head and body have normal sonographic appearance; pancreatic tail is obscured. Right kidney: Measures 9.0 cm in length with cortical thinning; a cyst measuring 1.0 ??? 1.3 ??? 1.1 cm is present. Left kidney: Measures 9.7 cm in length with mildly increased echogenicity. Spleen: Measures 10.0 cm with normal sonographic appearance; scattered calcified granulomas are present. Inferior vena cava and aorta: Inferior vena cava is patent; aorta measures 1.9 cm (proximal), 1.6 cm (mid), and 1.5 cm (distal) in maximal diameter. Impression: * No hepatosplenomegaly: liver 15.2 cm (normal size) with increased echogenicity consistent with hepatic steatosis; spleen 10.0 cm. * Right renal cortical thinning with a 1.0 ??? 1.3 ??? 1.1 cm renal cyst. * Mildly echogenic left kidney, which may reflect medical renal parenchymal disease in the appropriate clinical context. * Normal gallbladder and common bile duct caliber (5 mm). * Pancreatic tail obscured on ultrasound. * Comparison: Compared with computed tomography of the abdomen and pelvis without contrast dated 01/27/2025 at 14:30 EST, current ultrasound shows stable calcified granulomas in the spleen; other interval changes are not assessed cross-modality. /[place] DICTATED BY: RODOLFO BONE MD DATE: 01/29/25 154 ELECTRONICALLY SIGNED BY: RODOLFO BONE MD DATE: 01/29/25 154 ASSESSMENT: [Acute sepsis POA Lactic acidosis POA Intractable abdominal pain POA Nausea and vomiting POA Acute complicated cystitis POA Electrolyte imbalance hyponatremia Na 131 Acute dehydration POA Acute kidney injury POA Uncontrolled diabetes mellitus type 2 with hypoglycemia POA Hypothyroidism POA History of tubal ligation POA G positive Fever of unknown origin Gingivitis Anxiety PLAN: Gingivitis * Chlorhexidine * Metronidazole 500 mg Fever of unknown origin: * Pending Lyme serology * Started doxycycline hyclate 100 mg clinical to cover lyme * M maxillofacial CT scan showed gingivitis * Ordered Flagyl * HIV serology negative * Pending Lyme serology and other STDs panel * crp- 113.10 h anxiety * Zolpidem tartrate * [Acute sepsis POA Lactic acidosis POA * [ Patient admitted to hospitalist care to medical-surgical floor * Rocephin2 g for UTI daily * Normal saline at 100 mL/hour * Urinalysis positive * Strep positive * Drugs toxicity negative * Blood culture no growth * Urine culture -[id number] colony-forming units * Chest x-ray - emphysema changes with hyperinflation and flattening of the left hemidiaphragm * CT abdomen/pelvis - granulomas in the spleen and small calcified left perihilar lymph nodes-prior granulomatous disease * Abdominal ultrasound revealed no hepatosplenomegaly Hyponatremia * 131-134>133 * Acute kidney injury POA * Resolved * * PT consulted for disposition Case management consulted for disposition Consistent carbs diet ] JOSR Dougherty MD Jan 29, 2025 13:35
[2025-01-29 13:56] LABS: HEPATITIS A IGM ANTIBODY Non-Reactive (Nonreactive); HEPATITIS B CORE IGM ANTIBODY Non-Reactive (Negative)
--- NOTE | 2025-01-29 14:44 | HMCIMG ---
EXAM: ABDOMINAL ULTRASOUND Technique: Real-time grayscale ultrasound of the abdomen with supplemental color Doppler when indicated. Contrast: No intravenous contrast administered. Clinical Information: Evaluate for hepatosplenomegaly. Findings: Liver: Measures 15.2 cm in craniocaudal length and is normal in size with increased echogenicity compatible with hepatic steatosis. Gallbladder and biliary tree: Gallbladder is normal with wall thickness 2 mm; common bile duct measures 5 mm. Pancreas: Head and body have normal sonographic appearance; pancreatic tail is obscured. Right kidney: Measures 9.0 cm in length with cortical thinning; a cyst measuring 1.0 ??? 1.3 ??? 1.1 cm is present. Left kidney: Measures 9.7 cm in length with mildly increased echogenicity. Spleen: Measures 10.0 cm with normal sonographic appearance; scattered calcified granulomas are present. Inferior vena cava and aorta: Inferior vena cava is patent; aorta measures 1.9 cm (proximal), 1.6 cm (mid), and 1.5 cm (distal) in maximal diameter. Impression: * No hepatosplenomegaly: liver 15.2 cm (normal size) with increased echogenicity consistent with hepatic steatosis; spleen 10.0 cm. * Right renal cortical thinning with a 1.0 ??? 1.3 ??? 1.1 cm renal cyst. * Mildly echogenic left kidney, which may reflect medical renal parenchymal disease in the appropriate clinical context. * Normal gallbladder and common bile duct caliber (5 mm). * Pancreatic tail obscured on ultrasound. * Comparison: Compared with computed tomography of the abdomen and pelvis without contrast dated 01/27/2025 at 14:30 EST, current ultrasound shows stable calcified granulomas in the spleen; other interval changes are not assessed cross-modality. /[place]
--- NOTE | 2025-01-29 15:42 | PN ---
INFECTIOUS DISEASE PROGRESS NOTE Date of Service: Jan 29, 2025 SUBJECTIVE: This is a 54-year-old female patient who was admitted for evaluation of a right upper extremity insect bite, nausea and diarrhea. On admission patient had a low-grade fever of 100.2, procalcitonin was high at 0.81 and the CRP was 113.10. Patient reported having contact with both cats and dogs at home. Pending typhoid, malaria and Brucella serology results and for now we will continue on ceftriaxone for UTI and doxycycline for possible rickettsial infection. We will continue to follow patient's care. PHYSICAL EXAM EYES: Anicteric. Pupils equal and reactive. HENT: No oral thrush seen, moist Oral mucosa. NECK: Supple, no JVD or thyromegaly. LUNGS: Good air entry. No rales, no rhonchi. CARDIOVASCULAR: S1, S2 regular. No murmur heard. ABDOMEN: Soft, non tender, bowel sounds present, no organomegaly. CENTRAL NERVOUS SYSTEM: Awake, alert, oriented x 3. SKIN: No rashes, no swelling. LYMPHATICS: No peripheral lymphadenopathy. MUSCULOSKELETAL: No joint swelling, erythema or tenderness. EXTREMITIES: No cyanosis or clubbing. BACK: No deformity, no pressure ulcer. GENITOURINARY: No dysuria or hematuria. Vital Sign (Last 12 Hours) 01/29/25 01/29/25 01/29/25 01/29/25 04:00 04:42 08:00 10:17 Temp 100.9 98.2 98.1 Pulse 110 98 Resp 18 15 B/P (MAP) 117/71 118/63 Pulse Ox 94 94 O2 Delivery Room Air Room Air Room Air* O2 Flow Rate 0 FiO2 21 01/29/25 12:00 Temp 98.2 Pulse 100 Resp 16 B/P (MAP) 114/64 Pulse Ox 94 O2 Delivery Room Air Intake & Output (last 24hrs) 01/28/25 01/28/25 01/29/25 15:00 23:00 07:00 Intake Total 2500.0 ml 1300.0 ml Output Total 500 ml 200 ml Balance 2000.0 ml 1100.0 ml LABS: Laboratory: Test 01/29/25 15:22 01/29/25 05:28 01/28/25 05:14 Range/Units Whole Blood Glucose 103 70-110 MG/DL White Blood Count 7.9 4.8-10.8 K/uL Red Blood Count 3.62 L 4.00-5.50 MIL/uL Hemoglobin 10.8 L 12.0-16.0 g/dL Hematocrit 32.6 L 36-48 % Mean Corpuscular Volume 90.1 79-99 fL Mean Corpuscular Hemoglobin 29.8 27.0-33.0 pg Mean Corpuscular Hemoglobin Concent 33.1 32.0-36.0 g/dL Red Cell Distribution Width 13.0 11.0-15.5 % Platelet Count 144 130-400 K/uL Mean Platelet Volume 9.4 7.5-10.5 fL Nucleated Red Blood Cells 0.0 0.0-0.19 % Sodium Level 133 L 136-145 mmol/L Potassium Level 3.3 L 3.5-5.1 mmol/L Chloride Level 97 L 101-111 mmol/L Carbon Dioxide Level 26 21-32 mmol/L Blood Urea Nitrogen 8 7-18 mg/dL Creatinine 0.9 0.5-1.0 mg/dL Glomerular Filtration Rate Calc 76 >90 mL/min Random Glucose 97 70-105 mg/dL Total Calcium 7.4 L 8.5-10.1 mg/dL Total Bilirubin 0.3 0.2-1.0 mg/dL Aspartate Amino Transf (AST/SGOT) 42 H 10-37 U/L Alanine Aminotransferase (ALT/SGPT) 26 12-78 U/L Alkaline Phosphatase 130 50-136 U/L C-Reactive Protein, Quantitative 113.10 H 0.5-3.0 mg/L Total Protein 5.9 L 6.0-8.3 g/dL Albumin 2.3 L 3.5-5.0 g/dL Rapid Plasma Reagin NONREACTIVE NONREACTIVE Brucella Total Antibody Agglutin NEGATIVE NEGATIVE Hepatitis A IgM Antibody Non-Reactive Nonreactive Hepatitis B Surface Antigen. Non-Reactive Nonreactive Hepatitis B Core IgM Antibody Non-Reactive Negative Hepatitis C Antibody Non-Reactive Nonreactive HIV (1&2) Antibody Non-Reactive Negative HIV P24 Antigen, Qualitative Non-Reactive Negative Paratyphoid A Antibody NEGATIVE NEGATIVE Paratyphoid B Antibody NEGATIVE NEGATIVE Proteus OX-19 Antibody 1:40 NEGATIVE Typhoid H Antibody NEGATIVE NEGATIVE Typhoid O Antibody NEGATIVE NEGATIVE Immature Granulocyte % (Auto) 0.7 0-1 % Neutrophils (%) (Auto) 73.1 40.0-77.0 % Lymphocytes (%) (Auto) 21.0 21.0-51.0 % Monocytes (%) (Auto) 4.5 3.0-13.0 % Eosinophils (%) (Auto) 0.0 0.0-8.0 % Basophils (%) (Auto) 0.7 0.0-5.0 % Neutrophils # (Auto) 4.2 1.8-7.7 K/uL Lymphocytes # (Auto) 1.2 1.0-4.8 K/uL Monocytes # (Auto) 0.3 0.1-1.0 K/uL Eosinophils # (Auto) 0.00 0.00-0.70 K/uL Basophils # (Auto) 0.04 0.00-0.20 K/uL Absolute Immature Granulocyte (auto 0.04 0-1 K/uL Prothrombin Time 10.8 9.6-11.6 SEC Prothromb Time International Ratio 1.02 0.85-1.15 Hemoglobin A1c 6.0 4.0-6.0 % Estimated Average Glucose (eAG) 126 70-126 mg/dL Lactic Acid Level 1.3 0.8-2.5 mmol/L Magnesium Level 2.00 1.80-2.40 mg/dL Direct Bilirubin 0.1 0.0-0.3 mg/dL Ammonia < 10 L 11-32 umol/L Total Creatine Kinase 91 # 21-232 U/L Troponin I High Sensitivity 8.3 4-50 ng/L B-Type Natriuretic Peptide 108 H 0-100 pg/mL Amylase Level 48 25-115 U/L Lipase 61 16-77 U/L Procalcitonin 0.81 H 0.05-0.5 ng/mL Thyroid Stimulating Hormone (TSH) 0.81 0.36-3.74 uIU/mL Free Thyroxine (T4) Direct 1.21 0.76-1.46 ng/dL Free Triiodothyronine (T3) pg/mL 2.10 L 2.18-3.98 pg/mL ASSESSMENT: Possible rickettsial infection. Urinary tract infection. Bilateral maxillary and ethmoidal sinusitis. Right upper extremity insect bite. PLAN: Continue doxycycline. Continue ceftriaxone. Continue GI prophylaxis. Will follow up on the cultures results. Continue pain management. This case was reviewed and discussed with my supervising physician Dr. Mccord and the above assessment and plan was formulated and agreed upon. ATTESTATION BY PHYSICIAN I have seen and examined the patient. I reviewed the documentation, medical decision making, and treatment plan as noted by the mid-level provider above. I agree with the findings and plan of care. MITZI MCCORD MD, MIRTA L [facility] Jan 29, 2025 15:42
[2025-01-29] MEDS: LACTULOSE 20 GM/30 ML UDCUP PO PRN (22:04)
[2025-01-29] MEDS: PoTASSium chloRIDE 20MEQ ER 20 MEQ ERTAB PO PRN (22:04)
[2025-01-30] VITALS: BP 113/73; PULSE 101; RESP 18; TEMP 98.4
[2025-01-30 04:00] VITALS: BP 121/76; PULSE 100; RESP 19; TEMP 98.5
[2025-01-30 05:38] LABS: NUCLEATED RED BLOOD CELLS 0.0 % (0.0-0.19); PLATELET COUNT (AUTO) 158.0 K/uL (130-400); RED BLOOD CELL COUNT(AUTO) 3.99 MIL/uL (4.00-5.50); RED CELL DISTRIBUTION WIDTH 13.1 % (11.0-15.5); WHITE BLOOD COUNT (AUTO) 8.7 K/uL (4.8-10.8)
[2025-01-30 05:58] LABS: ASPARTATE AMINOTRANSFERASE 52.0 U/L (10-37); CREATININE 0.8 mg/dL (0.5-1.0); GLOMERULAR FILTR. RATE CALC 88.0 mL/min (>90); GLUCOSE,RANDOM 107.0 mg/dL (70-105); SODIUM SERUM 135.0 mmol/L (136-145); TOTAL PROTEIN, SERUM 6.2 g/dL (6.0-8.3); UREA NITROGEN, BLOOD 7.0 mg/dL (7-18)
[2025-01-30 08:00] VITALS: BP 131/78; PULSE 103; RESP 18
[2025-01-30 12:04] VITALS: BP 108/57; PULSE 103; RESP 20; TEMP 98.9
[2025-01-30 15:54] VITALS: BP 115/71; PULSE 95; RESP 19; TEMP 98.2
[2025-01-30] MEDS ORDERED: DOXY100T2 PO (16:47)
--- NOTE | 2025-01-30 17:28 | PN ---
INFECTIOUS DISEASE PROGRESS NOTE Date of Service: Jan 30, 2025 SUBJECTIVE: This is a 54-year-old female patient who was seen at bedside in room 309. Patient had a low-grade fever of 100.8 yesterday but none today, current temperature is 99.0. No growth reported in the urine and blood culture results. Typhoid, malaria and Brucella serology were negative. Currently continues on doxycycline, ceftriaxone and metronidazole. Patient can be discharged on doxycycline when ready to discharge. PHYSICAL EXAM EYES: Anicteric. Pupils equal and reactive. HENT: No oral thrush seen, moist Oral mucosa. NECK: Supple, no JVD or thyromegaly. LUNGS: Good air entry. No rales, no rhonchi. CARDIOVASCULAR: S1, S2 regular. No murmur heard. ABDOMEN: Soft, non tender, bowel sounds present, no organomegaly. CENTRAL NERVOUS SYSTEM: Awake, alert, oriented x 3. SKIN: No rashes, no swelling. LYMPHATICS: No peripheral lymphadenopathy. MUSCULOSKELETAL: No joint swelling, erythema or tenderness. EXTREMITIES: No cyanosis or clubbing. BACK: No deformity, no pressure ulcer. GENITOURINARY: No dysuria or hematuria. Vital Sign (Last 12 Hours) 01/30/25 01/30/25 01/30/25 08:00 12:04 15:54 Temp 99.0 98.2 Pulse 103 103 95 Resp 18 20 19 B/P (MAP) 131/78 108/57 115/71 Pulse Ox 97 91 97 O2 Delivery Room Air Room Air Room Air Intake & Output (last 24hrs) 01/29/25 01/29/25 01/30/25 15:00 23:00 07:00 Intake Total 800.0 ml 200 ml Output Total 700 ml Balance 800.0 ml -500 ml LABS: Laboratory: Test 01/30/25 15:18 01/30/25 05:09 01/30/25 03:08 01/29/25 05:28 Range/Units Whole Blood Glucose 94 70-110 MG/DL White Blood Count 8.7 4.8-10.8 K/uL Red Blood Count 3.99 L 4.00-5.50 MIL/uL Hemoglobin 11.8 L 12.0-16.0 g/dL Hematocrit 36.3 36-48 % Mean Corpuscular Volume 91.0 79-99 fL Mean Corpuscular Hemoglobin 29.6 27.0-33.0 pg Mean Corpuscular Hemoglobin Concent 32.5 32.0-36.0 g/dL Red Cell Distribution Width 13.1 11.0-15.5 % Platelet Count 158 130-400 K/uL Mean Platelet Volume 10.0 7.5-10.5 fL Nucleated Red Blood Cells 0.0 0.0-0.19 % Sodium Level 135 L 136-145 mmol/L Potassium Level 3.5 3.5-5.1 mmol/L Chloride Level 98 L 101-111 mmol/L Carbon Dioxide Level 30 21-32 mmol/L Blood Urea Nitrogen 7 7-18 mg/dL Creatinine 0.8 0.5-1.0 mg/dL Glomerular Filtration Rate Calc 88 >90 mL/min Random Glucose 107 H 70-105 mg/dL Total Calcium 8.0 L 8.5-10.1 mg/dL Magnesium Level 1.90 1.80-2.40 mg/dL Total Bilirubin 0.4 # 0.2-1.0 mg/dL Aspartate Amino Transf (AST/SGOT) 52 H 10-37 U/L Alanine Aminotransferase (ALT/SGPT) 31 12-78 U/L Alkaline Phosphatase 177 #H 50-136 U/L C-Reactive Protein, Quantitative 133.20 H 0.5-3.0 mg/L Total Protein 6.2 6.0-8.3 g/dL Albumin 2.5 L 3.5-5.0 g/dL Stool Occult Blood NEGATIVE NEGATIVE Rapid Plasma Reagin NONREACTIVE NONREACTIVE Brucella Total Antibody Agglutin NEGATIVE NEGATIVE Hepatitis A IgM Antibody Non-Reactive Nonreactive Hepatitis B Surface Antigen. Non-Reactive Nonreactive Hepatitis B Core IgM Antibody Non-Reactive Negative Hepatitis C Antibody Non-Reactive Nonreactive HIV (1&2) Antibody Non-Reactive Negative HIV P24 Antigen, Qualitative Non-Reactive Negative Malaria Smear Comment None Seen Paratyphoid A Antibody NEGATIVE NEGATIVE Paratyphoid B Antibody NEGATIVE NEGATIVE Proteus OX-19 Antibody 1:40 NEGATIVE Typhoid H Antibody NEGATIVE NEGATIVE Typhoid O Antibody NEGATIVE NEGATIVE ASSESSMENT: Possible rickettsial infection. Urinary tract infection. Bilateral maxillary and ethmoidal sinusitis. Right upper extremity insect bite. PLAN: Continue doxycycline. Continue ceftriaxone. Continue GI prophylaxis. Continue pain management. From Infectious Disease standpoint patient can be discharged on doxycycline when ready to discharge. This case was reviewed and discussed with my supervising physician Dr. Mccord and the above assessment and plan was formulated and agreed upon. ATTESTATION BY PHYSICIAN I have seen and examined the patient. I reviewed the documentation, medical decision making, and treatment plan as noted by the mid-level provider above. I agree with the findings and plan of care. MITZI MCCORD MD, MIRTA L [facility] Jan 30, 2025 17:27
--- NOTE | 2025-01-30 18:11 | DS ---
Discharge Summary Hospital Course Summary: This 54-year-old female with a history of hypothyroidism and tubal ligation was admitted for the evaluation of fever, chills, malaise and gastrointestinal symptoms following right upper upper extremity insect bite. Initial workup revealed a leukocytosis, positive urinalysis and a maxillofacial CT scan showing gingivitis. She was treated empirically with Rocephin, then transition to doxycycline for suspected Lyme disease and Flagyl for anaerobic coverage, with additional supportive care. Blood culture showed no growth, and and HIV was negative. Since the patient is IV drug abuser done echo for the suspected endocarditis and revealed nothing Hepatitis and typhoid panel were negative She remained hemodynamically stable, afebrile over,24 hours, and was discharged in improved condition with instructions to complete antibiotics, maintain oral hygiene and follow up with her primary care provider and Infectious Disease as needed. Raise Drill Operator(s): NFECTIOUS DISEASE PROGRESS NOTE Date of Service: Jan 30, 2025 SUBJECTIVE: This is a 54-year-old female patient who was seen at bedside in room 309. Patient had a low-grade fever of 100.8 yesterday but none today, current temperature is 99.0. No growth reported in the urine and blood culture results. Typhoid, malaria and Brucella serology were negative. Currently continues on doxycycline, ceftriaxone and metronidazole. Patient can be discharged on doxycycline when ready to discharge. PHYSICAL EXAM EYES: Anicteric. Pupils equal and reactive. HENT: No oral thrush seen, moist Oral mucosa. NECK: Supple, no JVD or thyromegaly. LUNGS: Good air entry. No rales, no rhonchi. CARDIOVASCULAR: S1, S2 regular. No murmur heard. ABDOMEN: Soft, non tender, bowel sounds present, no organomegaly. CENTRAL NERVOUS SYSTEM: Awake, alert, oriented x 3. SKIN: No rashes, no swelling. LYMPHATICS: No peripheral lymphadenopathy. MUSCULOSKELETAL: No joint swelling, erythema or tenderness. EXTREMITIES: No cyanosis or clubbing. BACK: No deformity, no pressure ulcer. GENITOURINARY: No dysuria or hematuria. Vital Sign (Last 12 Hours) 01/30/25 01/30/25 01/30/25 08:00 12:04 15:54 Temp 99.0 98.2 Pulse 103 103 95 Resp 18 20 19 B/P (MAP) 131/78 108/57 115/71 Pulse Ox 97 91 97 O2 Delivery Room Air Room Air Room Air Intake & Output (last 24hrs) 01/29/25 01/29/25 01/30/25 15:00 23:00 07:00 Intake Total 800.0 ml 200 ml Output Total 700 ml Balance 800.0 ml -500 ml LABS: Laboratory: Test 01/30/25 15:18 01/30/25 05:09 01/30/25 03:08 01/29/25 05:28 Range/Units Whole Blood Glucose 94 70-110 MG/DL White Blood Count 8.7 4.8-10.8 K/uL Red Blood Count 3.99 L 4.00-5.50 MIL/uL Hemoglobin 11.8 L 12.0-16.0 g/dL Hematocrit 36.3 36-48 % Mean Corpuscular Volume 91.0 79-99 fL Mean Corpuscular Hemoglobin 29.6 27.0-33.0 pg Mean Corpuscular Hemoglobin Concent 32.5 32.0-36.0 g/dL Red Cell Distribution Width 13.1 11.0-15.5 % Platelet Count 158 130-400 K/uL Mean Platelet Volume 10.0 7.5-10.5 fL Nucleated Red Blood Cells 0.0 0.0-0.19 % Sodium Level 135 L 136-145 mmol/L Potassium Level 3.5 3.5-5.1 mmol/L Chloride Level 98 L 101-111 mmol/L Carbon Dioxide Level 30 21-32 mmol/L Blood Urea Nitrogen 7 7-18 mg/dL Creatinine 0.8 0.5-1.0 mg/dL Glomerular Filtration Rate Calc 88 >90 mL/min Random Glucose 107 H 70-105 mg/dL Total Calcium 8.0 L 8.5-10.1 mg/dL Magnesium Level 1.90 1.80-2.40 mg/dL Total Bilirubin 0.4 # 0.2-1.0 mg/dL Aspartate Amino Transf (AST/SGOT) 52 H 10-37 U/L Alanine Aminotransferase (ALT/SGPT) 31 12-78 U/L Alkaline Phosphatase 177 #H 50-136 U/L C-Reactive Protein, Quantitative 133.20 H 0.5-3.0 mg/L Total Protein 6.2 6.0-8.3 g/dL Albumin 2.5 L 3.5-5.0 g/dL Stool Occult Blood NEGATIVE NEGATIVE Rapid Plasma Reagin NONREACTIVE NONREACTIVE Brucella Total Antibody Agglutin NEGATIVE NEGATIVE Hepatitis A IgM Antibody Non-Reactive Nonreactive Hepatitis B Surface Antigen. Non-Reactive Nonreactive Hepatitis B Core IgM Antibody Non-Reactive Negative Hepatitis C Antibody Non-Reactive Nonreactive HIV (1&2) Antibody Non-Reactive Negative HIV P24 Antigen, Qualitative Non-Reactive Negative Malaria Smear Comment None Seen Paratyphoid A Antibody NEGATIVE NEGATIVE Paratyphoid B Antibody NEGATIVE NEGATIVE Proteus OX-19 Antibody 1:40 NEGATIVE Typhoid H Antibody NEGATIVE NEGATIVE Typhoid O Antibody NEGATIVE NEGATIVE ASSESSMENT: Possible rickettsial infection. Urinary tract infection. Bilateral maxillary and ethmoidal sinusitis. Right upper extremity insect bite. PLAN: Continue doxycycline. Continue ceftriaxone. Continue GI prophylaxis. Continue pain management. From Infectious Disease standpoint patient can be discharged on doxycycline when ready to discharge. This case was reviewed and discussed with my supervising physician Dr. Mccord and the above assessment and plan was formulated and agreed upon. ATTESTATION BY PHYSICIAN I have seen and examined the patient. I reviewed the documentation, medical decision making, and treatment plan as noted by the mid-level provider above. I agree with the findings and plan of care. MITZI MCCORD MD, MIRTA L FNP Jan 30, 2025 17:27 Electronically Signed by: GERRY LEMUS, 01/30/25 3378 Electronically Co-Signed by: Procedure(s): [address] [address] IMAGING REPORT Signed PATIENT: ALLAN MENDOZA MR#: [id number] : 1970 SEX: F AGE: 54 LOCATION: 3BH ORDER 1406 STATUS: ADM IN REPORT#: [id number] SERVICE 1400 REASON: congestion ORDERING PHYSICIAN: IRASEMA RICH PROCEDURE: CXR1VW - CHEST 1VW EXAM: CHEST RADIOGRAPH, 1 VIEW Technique: Single frontal view of the chest. Clinical Information: Congestion. Findings: Lungs and large airways: Emphysematous changes with hyperinflation; flattening of the left hemidiaphragm; no focal airspace consolidation. Pleura: No pleural effusion or pneumothorax. Heart and mediastinum: Cardiomediastinal silhouette within normal size limits. Bones/joints: No acute osseous abnormality identified. Impression: * Emphysematous changes with hyperinflation and flattening of the left hemidiaphragm. * No acute cardiopulmonary process. /[place] DICTATED BY: RODOLFO BONE MD DATE: 01/27/252332 ELECTRONICALLY SIGNED BY: RODOLFO BONE MD DATE: 01/27/252332 [place] [address] [place] [id number] IMAGING REPORT Signed PATIENT: ALLAN MENDOZA MR#: [id number] : 1970 SEX: F AGE: 54 LOCATION: [facility] ORDER 141 STATUS: ADM IN REPORT#: [id number] SERVICE 141 REASON: nausea vomiting abd pain ORDERING PHYSICIAN: IRASEMA RICH REGISTRATION CLERK PROCEDURE: ABD PEL WO - CT ABDOMEN/PELVIS W/O CONTRAST EXAM: COMPUTED TOMOGRAPHY OF THE ABDOMEN AND PELVIS WITHOUT CONTRAST Technique: Helical computed tomography of the abdomen and pelvis with multiplanar reformations. CTDIvol: 9.7 mGy; DLP: 521.10 mGy???cm. Contrast: No intravenous contrast administered. Clinical Information: Nausea, vomiting, and abdominal pain. Findings: Lung bases: No pleural effusion, lobar collapse, or consolidation in the visualized lung bases; a few small calcified left perihilar lymph nodes. Liver: Normal size, morphology, and attenuation with smooth margins; no focal hepatic lesion; no intrahepatic or extrahepatic biliary ductal dilatation; aleyda hepatis unremarkable; portal vein, hepatic veins, and inferior vena cava are normal in caliber. Gallbladder and biliary tree: Normal wall thickness with smooth margins; homogeneous luminal density; no intraluminal calculus or mass; surrounding fat is unremarkable; cystic duct appears normal. Pancreas: Normal size, morphology, and attenuation; main pancreatic duct is not dilated; no peripancreatic fluid or fat stranding. Spleen: Normal size and attenuation; multiple tiny calcified granulomas. Adrenals: Normal morphology and attenuation bilaterally. Kidneys and ureters: Normal size, shape, position, and attenuation bilaterally; no renal or ureteral calculus, mass, hydronephrosis, or obstructive uropathy. Stomach and duodenum: Stomach is distended and otherwise unremarkable; gastroesophageal junction and pylorus are normal; duodenum normal in course and caliber. Small bowel: Jejunal and ileal loops show normal distribution and caliber without wall thickening or obstruction. Colon and appendix: Rectum and colon are distended with fecal material; no mural thickening or pericolonic inflammatory change; no computed tomography evidence of acute appendicitis. Peritoneum and mesentery: No free intraperitoneal fluid or free air; mesenteric fat and omentum are unremarkable. Lymph nodes: No pathologically enlarged mesenteric, retroperitoneal, or pelvic lymph nodes. Retroperitoneum and vasculature: Aorta and inferior vena cava are normal in course and caliber. Pelvic organs: Urinary bladder demonstrates normal wall thickness and contour; uterus normal for age; bilateral tubal clips are present. Abdominal wall/soft tissues: Extra-abdominal and paraspinal soft tissues are unremarkable; no hernia identified. Osseous structures: No acute osseous abnormality. Impression: * No acute abdominopelvic abnormality identified on non-contrast computed tomography. * Calcified granulomas in the spleen and small calcified left perihilar lymph nodes, compatible with prior granulomatous disease. * Bilateral tubal clips. /[place] DICTATED BY: RODOLFO BONE MD DATE: 01/27/251605 ELECTRONICALLY SIGNED BY: RODOLFO BONE MD DATE: 01/27/251605 [place] [address] IMAGING REPORT Signed PATIENT: ALLAN MENDOZA MR#: [id number] : 1970 SEX: F AGE: 54 LOCATION: 3BH ORDER 30 STATUS: ADM IN REPORT#: [id number] SERVICE 143 REASON: HEADACHE ORDERING PHYSICIAN: IRASEMA RICH PROCEDURE: HEAD WO - CT HEAD/BRAIN W/O CONTRAST EXAM: CT BRAIN WITHOUT CONTRAST Technique: Non-contrast helical computed tomography of the brain with axial images; coronal and sagittal reformations using iterative reconstruction and automatic exposure control with patient-size???based kilovoltage/milliampere selection. CTDIvol: 57.50 mGy; DLP: 1010.60 mGy???cm. Contrast: No intravenous contrast administered. Clinical Information: Headache. Findings: Brain: Huff???white matter differentiation is preserved; no focal parenchymal abnormality is identified. Ventricles and extra-axial spaces: Ventricular size and configuration are within normal limits; no extra-axial fluid collection. Midline structures: No midline shift. Cerebellum and brainstem: Unremarkable. Orbits: Visualized intraorbital contents are unremarkable. Paranasal sinuses and mastoid air cells: Clear. Skull and skull base: Calvarium and skull base demonstrate normal osseous attenuation without acute fracture. Impression: * No acute intracranial abnormality???no acute hemorrhage, mass effect, or territorial infarction. /[place] DICTATED BY: RODOLFO BONE MD DATE: 01/27/252333 ELECTRONICALLY SIGNED BY: RODOLFO BONE MD DATE: 01/27/252333 [address] [id number] IMAGING REPORT Signed PATIENT: ALLAN MENDOZA MR#: [id number] : 1970 SEX: F AGE: 54 LOCATION: [facility] ORDER 1130 STATUS: ADM IN MEDICAL CENTER REPORT#: [id number] SERVICE 1123 REASON: possible endocarditis ORDERING PHYSICIAN: JOSR GARCIA MD PROCEDURE: ECHO CMP - ECHO 2-D COMPLETE APPROVED REPORT EXAM: Two-dimensional and M-mode echocardiogram with Doppler and color Doppler. INDICATION ICD: Possible endocarditis 2D Dimensions RVDd 3.1 cm LVEF(%) 62.5 (>50%) LVED Vol(simp.) 71.0 mL IVSd 0.6 (0.7-1.1cm) FS(%) 33 % LVES Vol(simp.) 26.0 mL LVDd 4.1 (3.8-5.6cm) LA (2D) 3.2 (1.6-4.0cm) LVEF(%, simp.) 64 % PWd 0.6 (0.7-1.1cm) Ao Root(2D) 2.7 (2.0-3.7cm) LA ESV INDEX (BP) 21.13 mL/m2 LVDs 2.7 (2.5-4.0cm) LVOT diam 1.9 (1.8-2.4cm) IVC diam 1.8 cm Deformation Strain Apical 4 -20.0 % Apical 2 -15.7 % Apical 3 -21.2 % Global Strain -19.0 % Aortic Valve AoV Vmax 1.5 m/s Ao Peak GR 8.6 mmHg LVOT Vmax 1.4 m/s AoV VTI 0.2 m Ao Mean GR 5.5 mmHg LVOT VTI 0.21 m YUE (VMAX) 2.83 cm2 YUE (VTI) 2.5 cm2 Mitral Valve MV E Vmax 87.2 cm/s DECEL Time 169 ms MV A Vmax 71.4 cm/s P 1/2 T 34 ms E/A ratio 1.2 MVA (PHT) 6.4 cm2 TDI E/E' Medial 7.9 E/E' Lateral 7.8 Medial E' Peak V 11.10 cm/s Lateral E' Peak V 11.11 cm/s Pulmonary Valve PV Vmax 1.3 m/s PV VTI 0.24 m PV Mean GR 3.8 mmHg PV Peak GR 6.3 mmHg Tricuspid Valve TR Vmax 2.3 m/s RVSP 20.6 mmHg TR Peak GR 23.4 mmHg Left Ventricle The left ventricle is normal size. There is normal LV segmental wall motion. There is normal left ventricular wall thickness. LVEF is 60-65%. The left ventricular diastolic function is normal. Right Ventricle The right ventricle is normal size. The right ventricular systolic function is normal. Atria The left atrium size is normal. The right atrium size is normal. Aortic Valve The aortic valve is normal in structure. No aortic regurgitation is present. No aortic valvular vegetation noted. There is no aortic valvular stenosis. Mitral Valve The mitral valve is normal in structure. Mitral regurgitation is trace. There are no mitral valve vegetation noted. There is no mitral valve stenosis. Tricuspid Valve The tricuspid valve is normal in structure. There is no tricuspid valve regurgitation noted. There is no tricuspid valve vegetation. Pulmonic Valve The pulmonary valve is normal in structure. There is no pulmonic valvular regurgitation. Great Vessels The aortic root is normal in size. The IVC is normal in size and collapses >50% with inspiration. Pericardium There is no pericardial effusion. Conclusion LVEF is 60-65%. There is normal LV segmental wall motion. The left ventricular diastolic function is normal. The aortic valve is normal in structure. The mitral valve is normal in structure. The tricuspid valve is normal in structure. DICTATED BY: JONATHAN GRIFFITHS MD DATE: 01/28/25 1331 ELECTRONICALLY SIGNED BY: JONATHAN GRIFFITHS MD DATE: 01/28/[address] [id number] IMAGING REPORT Signed PATIENT: ALLAN MENDOZA MR#: [id number] : 1970 SEX: F AGE: 54 LOCATION: 3BH ORDER 1130 STATUS: ADM IN REPORT#: [id number] SERVICE 1123 REASON: suspected oral infection ORDERING PHYSICIAN: JOSR GARCIA MD PROCEDURE: [facility] - CT MAXILLOFACIAL W/O CONTRAST EXAM: CT Maxillofacial Without IV contrast. CLINICAL HISTORY: Suspected oral infection. TECHNIQUE: Axial computed tomography images of the face obtained without intravenous contrast. Sagittal and coronal reformatted images were reviewed. CONTRAST: None. COMPARISON: None provided. FINDINGS: FACIAL BONES / ORBITS: No acute fracture or aggressive osseous lesion identified. Mild cortical rarefaction involving the mandibular dental alveolus in the left paramedian region with adjacent gingival thickening???suggestive of early inflammatory or infective changes; MRI correlation recommended for soft tissue and marrow evaluation. The remainder of the mandible is intact. Orbits are normal without retrobulbar haematoma or mass. PARANASAL SINUSES: Deviated nasal septum towards the left with hypertrophied right inferior turbinate and infected right sixto bullosa. Mucosal thickening noted in the bilateral maxillary and ethmoidal sinuses, consistent with sinusitis. Frontal and sphenoid sinuses are clear. SOFT TISSUES: Adjacent facial and gingival soft tissues show mild thickening without abscess or collection. No radiopaque foreign body.IMPRESSION: 1. Mild cortical rarefaction of left paramedian mandibular dental alveolus with adjacent gingival thickening, suggestive of early inflammatory or infective changes. MRI correlation recommended for soft tissue and marrow evaluation. 2. Bilateral maxillary and ethmoidal sinusitis. 3. Deviated nasal septum towards the left with hypertrophied right inferior turbinate and infected right sixto bullosa. 4. No acute fracture or aggressive osseous lesion identified. 5. Orbits are normal without retrobulbar haematoma or mass. 6. Frontal and sphenoid sinuses are clear. 7. No radiopaque foreign body identified in the soft tissues. /[place] DICTATED BY: RODOLFO BONE MD DATE: 01/28/251725 ELECTRONICALLY SIGNED BY: RODOLFO BONE MD DATE: 01/28/251725 [place] [address] IMAGING REPORT Signed PATIENT: ALLAN MENDOZA MR#: [id number] : 1970 SEX: F AGE: 54 LOCATION: 3B ORDER 55 STATUS: ADM IN REPORT#: [id number] SERVICE 1642 REASON: to check for hepatosplenomegaly ORDERING PHYSICIAN: JOSR GARCIA MD PROCEDURE: ABDOMEN - US ABDOMINAL COMPLETE EXAM: ABDOMINAL ULTRASOUND Technique: Real-time grayscale ultrasound of the abdomen with supplemental color Doppler when indicated. Contrast: No intravenous contrast administered. Clinical Information: Evaluate for hepatosplenomegaly. Findings: Liver: Measures 15.2 cm in craniocaudal length and is normal in size with increased echogenicity compatible with hepatic steatosis. Gallbladder and biliary tree: Gallbladder is normal with wall thickness 2 mm; common bile duct measures 5 mm. Pancreas: Head and body have normal sonographic appearance; pancreatic tail is obscured. Right kidney: Measures 9.0 cm in length with cortical thinning; a cyst measuring 1.0 ??? 1.3 ??? 1.1 cm is present. Left kidney: Measures 9.7 cm in length with mildly increased echogenicity. Spleen: Measures 10.0 cm with normal sonographic appearance; scattered calcified granulomas are present. Inferior vena cava and aorta: Inferior vena cava is patent; aorta measures 1.9 cm (proximal), 1.6 cm (mid), and 1.5 cm (distal) in maximal diameter. Impression: * No hepatosplenomegaly: liver 15.2 cm (normal size) with increased echogenicity consistent with hepatic steatosis; spleen 10.0 cm. * Right renal cortical thinning with a 1.0 ??? 1.3 ??? 1.1 cm renal cyst. * Mildly echogenic left kidney, which may reflect medical renal parenchymal disease in the appropriate clinical context. * Normal gallbladder and common bile duct caliber (5 mm). * Pancreatic tail obscured on ultrasound. * Comparison: Compared with computed tomography of the abdomen and pelvis without contrast dated 01/27/2025 at 14:30 EST, current ultrasound shows stable calcified granulomas in the spleen; other interval changes are not assessed cross-modality. /[place] DICTATED BY: RODOLFO BONE MD DATE: 01/29/25 154 ELECTRONICALLY SIGNED BY: RODOLFO BONE MD DATE: 01/29/25 154 Assessment/Plan: ASSESSMENT: [Acute sepsis POA Lactic acidosis POA Intractable abdominal pain POA Nausea and vomiting POA Acute complicated cystitis POA Electrolyte imbalance hyponatremia Na 131 Acute dehydration POA Acute kidney injury POA Uncontrolled diabetes mellitus type 2 with hypoglycemia POA Hypothyroidism POA History of tubal ligation POA G positive Fever of unknown origin Gingivitis Anxiety PLAN: Medications * Completed the full course of doxycycline 100 mg as prescribed for suspected Lyme disease * Continue her home medications for hypothyroidism as previously directed Wound Care * monitor the site of insect bite Oral hygiene * Prescribed chlorhexidine for gingivitis * Follow up with PCP within 1 week * Follow up with Infectious Disease as recommended Discharge Instructions: Medications * Completed the full course of doxycycline 100 mg as prescribed for suspected Lyme disease * Continue her home medications for hypothyroidism as previously directed Wound Care * monitor the site of insect bite Oral hygiene * Prescribed chlorhexidine for gingivitis * Follow up with PCP within 1 week * Follow up with Infectious Disease as recommended Home Medications: Active Scripts Doxycycline Hyclate (Doxycycline Hyclate) 100 Mg Tablet, 1 TAB PO BID for 7 Days, #14 TAB 0 Refills Prov:CARLITOS DREW MD 01/30/25 Pantoprazole Sodium (Protonix) 40 Mg Ectab, 40 MG PO DAILY for 30 Days, #30 TAB.EC Prov:AKUA HUTTON MD 01/31/23 Time spent arranging discharge: 1-30 minutes ATTESTATION BY PHYSICIAN I have seen and examined the patient. I reviewed the documentation, medical decision making, and treatment plan as noted by the resident physician above. I agree with the findings and plan of care. EMILY LATIF MD, HARSHA MD Jan 30, 2025 18:11
== END 2025-01-30 18:51 | disposition home or self-care (01) | DRG 872 ==
LOC: EDH 11:34 → EDHIP 11:35 → UNDOADMIN 14:00 → EDHIP 14:00 → 3BH 15:28
PROVIDERS: ADMIT Internal Medicine; ATTEND Internal Medicine
DX: A41.9 Sepsis, unspecified organism (principal); E87.20 Acidosis, unspecified; N17.9 Acute kidney failure, unspecified; E87.1 Hypo-osmolality and hyponatremia; N30.00 Acute cystitis without hematuria; J32.2 Chronic ethmoidal sinusitis; E11.649 Type 2 diabetes mellitus with hypoglycemia without coma; E03.9 Hypothyroidism, unspecified; F19.10 Other psychoactive substance abuse, uncomplicated; I34.0 Nonrheumatic mitral (valve) insufficiency; E86.0 Dehydration; F41.9 Anxiety disorder, unspecified; K05.10 Chronic gingivitis, plaque induced; W57.XXXA Bitten or stung by nonvenomous insect and other nonvenomous arthropods, initial encounter; Z79.899 Other long term (current) drug therapy
CPT/HCPCS: 36415; 70450; 70486; 71045; 74176; 76700; 80048; 80053; 80074; 80305; 81001; 82140; 82150; 82248; 82270; 82550; 82948; 83036; 83605; 83690; 83735; 83880; 84145; 84439; 84443; 84481; 84484; 85025; 85027; 85610; 86000; 86140; 86592; 86617; 86701; 86757; 87040; 87086; 87207; 87390; 87635; 87804; 87880; 93005; 93306; 93356; 99291; G0378; J0696; J1644; J2405; J7030; J1308